=== PATIENT | male | born 1975 | race Caucasian/White ===

== ENCOUNTER 2019-10-05 13:11 | Emergency (ER) | payer OTHER, SELFPAY ==
[2019-10-05 13:13] VITALS: BP 135/91; PULSE 79; RESP 18; TEMP 36.7; O2SAT 100
--- NOTE | 2019-10-05 14:21 | ED.GENADULT ---
HPI - General Adult General Chief complaint: Unspecified Stated complaint: joint/muscle pain, taking zehra Time Seen by Provider: 10/05/19 13:14 Source: patient Mode of arrival: ambulatory Limitations: no limitations History of Present Illness HPI narrative: Patient is a 44-year-old male who presents to emergency department for evaluation of arthralgias for the last 3 days. Patient was concerned that it may be a reaction secondary to his Humira which she has been taking for the last month patient takes Humira for his Crohn's. Is followed by Dr. Burr. Patient denies any illness or other complaints. Patient has not taken anything for his symptoms. Patient notes that the pain is minimal. Related Data Allergies Allergy/AdvReac Type Severity Reaction Status Date / Time No Known Allergies Allergy Unverified 09/02/19 08:55 Review of Systems Review of Systems: All systems reviewed & are unremarkable except as noted in HPI and below PMFSH Past Medical History Medical History Anxiety GERD (gastroesophageal reflux disease) Surgical History Surgical History History of colonoscopy August of [address] Burr. Colon biopsies benign. Biopsy of terminal ileum showed nonspecific moderate chronic ileitis. 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 Smoking packs per day: 0.5 Smoking cigarettes per day: 10.0 Years smoked: 10 Smoking pack-years: 5.00 Smoking status: Former smoker Tobacco type: cigarettes Second hand tobacco smoke exposure: No Smoking end date: 02/21/17 Additional smoking assessment comments: Quit smoking a few years ago. Smoked about 0.5 PPD for 10 years. Alcohol intake: current Drinks per week: 1 Substance use: never Additional living arrangements comments: Lives with his and two children, 15 and 17 years old. 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 Gender identity (if verbalized by the patient): Male Spiritual care concerns: No Agree to blood products: Yes Exam Narrative: Exam Narrative: GENERAL: Well-appearing, well-nourished, and in no acute distress. HEAD: Normocephalic, atraumatic. EYES: PERRLA and EOMI. ENT: Nares clear, no rhinorrhea or epistaxis. Mucous membranes moist. CHEST: Clear to auscultation. No respiratory distress. No wheezes rales or rhonchi HEART: Regular rate and rhythm. No murmur heard. EXTREMITIES: Normal range of motion. No edema. SKIN: Warm, dry, no rash. NEURO: No focal deficits. Alert and oriented x3. Cranial nerves II through XII grossly intact PSYCH: Normal mood and affect. Course Course Emergency Course: Patient in the room in no distress aware of discussion with his cell manager agrees to plan and will follow in clinic was provided with reasons to return Consultations Consultation #1: Discussed case in entirety with patient's cell manager who recommends that the patient take Tylenol and can follow in clinic Date: 10/05/19 Time: 14:24 Vital Signs Vital signs: Vital Signs Temperature 98.0 F 10/05/19 13:13 Pulse Rate 79 10/05/19 13:13 Respiratory Rate 18 10/05/19 13:13 Blood Pressure 135/91 H 10/05/19 13:13 Pulse Oximetry 100 10/05/19 13:13 Temperature 98.0 F 10/05/19 13:13 Pulse Rate 79 10/05/19 13:13 Respiratory Rate 18 10/05/19 13:13 Blood Pressure 135/91 H 10/05/19 13:13 Pulse Oximetry 100 10/05/19 13:13 Medical Decision Making [facility] Narrative Medical decision making narrative: Patient in the room at this time in no distress with no other plaints denies any illness and notes that he has felt fine aside from his mild arthralgias patient agrees to follow with h
== END 2019-10-05 14:39 | disposition home or self-care (01) ==
PROVIDERS: Emergency Provider Emergency Medicine; PCP Family Medicine
DX: M25.50 Pain in unspecified joint (principal); K50.90 Crohn's disease, unspecified, without complications; Z87.891 Personal history of nicotine dependence
CPT/HCPCS: 99281

== ENCOUNTER 2019-10-05 19:16 | Emergency (ER) | payer OTHER, SELFPAY ==
[2019-10-05] VITALS (7 sets, daily range): BP systolic 112–147; BP diastolic 77–97; PULSE 62–99; RESP 18–20; TEMP 36; O2SAT 98–100
--- NOTE | ~2019-10-05 | XR_ITS ---
EXAMINATION: XR chest 2V 10/05/2019 20:01 INDICATION: Chest pain PROCEDURE: 2 view chest COMPARISON: No prior studies for comparison. FINDINGS: The lungs are clear. The cardiomediastinal silhouette is within normal limits. There are no pleural effusions. There is no pneumothorax suspected. IMPRESSION: 1: NO ACUTE CARDIOPULMONARY DISEASE. Reviewed, dictated and finalized at location A.
--- NOTE | 2019-10-05 19:36 | ECG_ITS ---
Measurements Intervals Mallory Rate: 76 P: 65 CO: 193 QRS: 91 QRSD: 116 T: 76 QT: 383 QTc: 432 Interpretive Statements SINUS RHYTHM RIGHT AXIS DEVIATION INCOMPLETE RIGHT BUNDLE BRANCH BLOCK BORDERLINE ECG Electronically Signed On 10-06-2019 7:27:08 CDT by Lloyd Hu D.O.
[2019-10-05 19:59] LABS: Basophils Percent Auto 0.3 % (0.2-1.2); Eosinophils Absolute Auto 0.1 K/mm3 (0-0.3); Eosinophils Percent Auto 2.2 % (0-4.4); Hematocrit 38.4 % (42.0-52.0); Hemoglobin 12.6 g/dL (14.0-18.0); Immature Granulocyte Absolute 0.01 K/mm3 (0.00-0.031); Immature Granulocyte Percent A 0.2 % (0-0.5); Lymphocytes Absolute Auto 2.61 K/mm3 (0.9-3.2); Lymphocytes Percent Auto 40.5 % (18.3-44.2); Mean Corpuscular HGB Conc 32.8 g/dl (32-36); Mean Corpuscular Volume 82.2 fl (80-100); Mean Platelet Volume 8.8 fl (7.4-10.4); Monocytes Absolute Auto 0.4 K/mm3 (0.1-0.6); Monocytes Percent Auto 6.5 % (2.6-8.5); Neutrophils Absolute Auto 3.2 K/mm3 (1.3-6.7); Neutrophils Percent Auto 50.3 % (45.5-73.1); Platelet Count Result 261 k/mm3 (150-375); Red Blood Count 4.67 M/mm3 (4.6-6.20); Red Cell Distribution Width 15.2 % (11.5-14.5); White Blood Count 6.4 K/mm3 (4.5-10.0)
[2019-10-05] MEDS: SODIUM CHLORIDE 0.9% IV 1,000 ML 999 ML IV CONT (20:03)
[2019-10-05 20:08] LABS: Prothrombin Time 13.1 Seconds (11.1-14.7)
[2019-10-05 20:09] LABS: Partial Thromboplastin Time 30.1 SECONDS (22.3-36.8)
[2019-10-05 20:11] LABS: Alanine Aminotransferase 27 U/L (4-50); Albumin Level 4.1 g/dL (3.5-5.1); Alkaline Phosphatase 98 U/L (38-126); Aspartate Amino Transferase 25 U/L (17-59); Bilirubin,Total 0.8 mg/dL (0.2-1.3); Blood Urea Nitrogen 10 mg/dL (9-20); Carbon Dioxide 25 mmol/L (22-30); Chloride 105 mmol/L (98-107); Creatine Kinase 77 U/L (55-170); Estimated CRCL calculation 98 ml/min; Estimated Glomerular Filt Rate > 60; Glucose 121 mg/dL (75-110); Lipase 139 U/L (23-300); Potassium 3.5 mmol/L (3.4-5.0); Sodium 137 mmol/L (137-145)
[2019-10-05 20:22] LABS: Troponin I < 0.012 ng/mL (0.000-0.034)
[2019-10-05 20:28] LABS: D Dimer < 0.22 ug/mL (<0.48)
--- NOTE | 2019-10-05 20:56 | ED.GENADULT ---
HPI - General Adult General Chief complaint: Unspecified Stated complaint: joint pain Time Seen by Provider: 10/05/19 19:25 Source: RN notes reviewed History of Present Illness HPI narrative: Patient presents emergency department from home for left shoulder pain. Patient states that he noted today he began to have achiness in his left posterior shoulder he denies any known trauma or injury states it does hurt worse with movement of the left shoulder. States he does have radiation into the left anterior chest. Patient states he was recently started on Humira and had noted some intermittent joint pain and question if it was possibly Humira he had been seen in the emergency department earlier today for evaluation of this. Patient denies having any fevers or chills shortness of breath vomiting diarrhea or any other symptoms he does note mild nausea states he had had earlier days of mild epigastric pain but denies any current epigastric pain Related Data Allergies Allergy/AdvReac Type Severity Reaction Status Date / Time No Known Allergies Allergy Unverified 10/05/19 20:00 Review of Systems Review of Systems: Narrative: Gen.: Denies fevers or chills Eyes: Denies eye pain or visual change ENT: Denies congestion Respiratory: Denies shortness of breath or cough CV: Denies chest pain or palpitations GI: Reports epigastric pain nausea denies vomiting or diarrhea denies burning, urgency, frequency or hematuria Musculoskeletal: See HPI Neuro: Denies numbness, tingling, weakness or focal weakness Skin: Denies rash Except as documented, all other systems reviewed and negative PMFSH Past Medical History Medical History Anxiety GERD (gastroesophageal reflux disease) Social History Social History Social History: His is durable power title 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 Smoking packs per day: 0.5 Smoking cigarettes per day: 10.0 Years smoked: 10 Smoking pack-years: 5.00 Smoking status: Former smoker Tobacco type: cigarettes Second hand tobacco smoke exposure: No Smoking end date: 02/21/17 Additional smoking assessment comments: Quit smoking a few years ago. Smoked about 0.5 PPD for 10 years. Alcohol intake: current Drinks per week: 1 Substance use: never Additional living arrangements comments: Lives with his and two children, 15 and 17 years old. 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 Gender identity (if verbalized by the patient): Male Spiritual care concerns: No Agree to blood products: Yes Exam Narrative: Exam Narrative: APPEARANCE: No acute distress, nontoxic, resting in bed EYES: EOMI HEENT: Normocephalic, atraumatic, OMM RESPIRATORY: No respiratory distress Clear to auscultation bilaterally with no rhonchi wheezing or rales. CARDIOVASCULAR: Regular rate and rhythm without murmurs rubs or gallops. ABDOMINAL: Soft, nontender, nondistended, no rebound or guarding MUSCULOSKELETAl: Moves all extremities. No clubbing, cyanosis or edema. Tender to palpation in the left posterior and superior shoulder no swelling or ecchymosis no tenderness of the anterior lateral shoulder pain with flexion abduction greater than 90 degrees, no tenderness of the elbow or wrist radial pulse 2+ neurovascular intact NEURO: Awake and alert. Following commands, speech normal, no focal deficits SKIN:: Warm, dry. No rashes lesions or abrasions PSYCHIATRIC: Normal affect/mood, Course Course Emergency Course: Patient states symptoms are resolved following Toradol Discussed with patient results of workup and diagnosis. Discussed need for follow-up with primary care, proper use of medication, and reasons to return to the emergency department. Patient understands and agrees to current treatment plan Vital Signs Vital signs: Vital Signs
[2019-10-05] MEDS: KETOROLAC 30 MG/ML VIAL (*BKC) IV PUSH (21:36)
[2019-10-05 22:50] LABS: Troponin I < 0.012 ng/mL (0.000-0.034)
== END 2019-10-05 23:40 | disposition home or self-care (01) ==
PROVIDERS: Emergency Provider Emergency Medicine; PCP Family Medicine
DX: M25.512 Pain in left shoulder (principal); K21.9 Gastro-esophageal reflux disease without esophagitis; Z87.891 Personal history of nicotine dependence; I45.10 Unspecified right bundle-branch block
CPT/HCPCS: 36415; 71046; 80053; 82550; 83690; 84484; 85025; 85380; 85610; 85730; 93005; 96361; 96374; 99284; J1885; J7030

== ENCOUNTER 2020-06-05 00:23 | Outpatient (CLI) | payer OTHER, SELFPAY ==
[2020-06-05 19:17] LABS: SARS-CoV-2 RNA PCR Negative
== END 2020-06-05 00:24 | disposition home or self-care (01) ==
LOC: ANHCOVIDDT 00:24
PROVIDERS: PCP Family Medicine; Visit Provider Internal Medicine Gastroenterology
DX: Z01.812 Encounter for preprocedural laboratory examination (principal); Z20.822 Contact with and (suspected) exposure to COVID-19
CPT/HCPCS: C9803; U0003; U0005

== ENCOUNTER 2020-06-08 00:44 | Day surgery (SDC) | payer OTHER, SELFPAY ==
[2020-05-22 11:42] VITALS: BMI 20.9
[2020-06-08 06:40] VITALS: BP 119/81; PULSE 93; RESP 18; TEMP 36.3; O2SAT 99
[2020-06-08] MEDS: LACTATED RINGERS 1,000 ML 150 ML IV CONT (06:42)
--- NOTE | 2020-06-08 07:02 | WPDANESEPPF ---
Anes - Initial Pre Proc Eval Procedure: Operation Date: 06/08/20 08:00 Proposed Procedures p Colonoscopy - Anthony Viera MD Date/Time: 06/08/20 07:02 Surgeon: Anthony Viera MD Pre Op Diagnosis: chrohn's disease Patient Data Age: 45 Gender: M Height: 1.93 m Weight: 76.2 kg Last Vital Signs Temp 36.3 C L 06/08/20 06:40 Pulse 93 06/08/20 06:40 Resp 18 06/08/20 06:40 BP 119/81 06/08/20 06:40 Pulse Ox 99 06/08/20 06:40 Allergies Allergy/AdvReac Type Severity Reaction Status Date / Time No Known Allergies Allergy Verified 06/08/20 06:38 Home Medications Medication Instructions Recorded Confirmed Type escitalopram oxalate 20 mg tablet 40 mg PO DAILY #60 tablet 03/19/20 05/22/20 Rx pantoprazole 40 mg tablet,delayed 40 mg PO QAM #90 tablet 04/10/20 05/22/20 Rx release adalimumab [Humira] 40 mg SUB-Q WEEKLY 05/22/20 05/22/20 History Patient hx anesthesia problems: none Family hx anesthesia problems: none PMFSH Past Medical History Medical History (Updated 06/08/20 @ 07:03 by Eulogio Blue MD) Anxiety Crohn's colitis GERD (gastroesophageal reflux disease) Surgical History Surgical History History of colonoscopy August of [address] Burr. Colon biopsies benign. Biopsy of terminal ileum showed nonspecific moderate chronic ileitis. 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 Smoking packs per day: 0.5 Smoking cigarettes per day: 10.0 Years smoked: 10 Smoking pack-years: 5.00 Smoking status: Former smoker Tobacco type: cigarettes Second hand tobacco smoke exposure: No Smoking end date: 02/21/17 Additional smoking assessment comments: Quit smoking a few years ago. Smoked about 0.5 PPD for 10 years. Alcohol intake: never Drinks per week: 1 Substance use: never Substance use type: does not use Living arrangements: with family Additional living arrangements comments: Lives with his and two children, 15 and 17 years old. 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 Gender identity (if verbalized by the patient): Male Spiritual care concerns: No Agree to blood products: Yes Anes - Eval Final PreProcedure Day of Procedure 06/08/20 07:02 Patient weight: normal Heart: regular rate and rhythm Lungs: clear to auscultation and normal air movement Airway: Mallampati scale class II Neurological: alert and oriented Last oral intake: >/= 8 hours ASA classification: III Emergent: no Anesthetic plan: proceed Anesthesia type and monitoring: general GIVS Informed Consent: The patient's anesthetic plan and its attendant risks and benefits were discussed with the patient/family/POA. Questions were solicited and answers provided to the satisfaction of the patient/family/POA.
--- NOTE | 2020-06-08 08:04 | PM.HPGS ---
History of Present Illness History of Present Illness Consent: Risks, benefits, and alternatives have been discussed and questions answered. Patient agrees to proceed with procedure. Chief complaint: chrohn's disease Narrative: Aleks Gorman is a 45 year old male with Crohn's after had ileitis and small pelvic abscess 04/25, on humira for almost 10 months, asymptomatic now. Review of Systems Constitutional: Constitutional: Denies headache(s) and Denies weakness Eyes: Eyes: Denies blurry vision ENT: Reports Normal hearing present, Denies headache(s) and Denies neck pain Cardiovascular: Cardiovascular: Denies chest pain and Denies dyspnea Respiratory: Respiratory: Denies dyspnea Gastrointestinal: Gastrointestinal: Reports no additional gastrointestinal complaints Genitourinary: Genitourinary: Denies dysuria Musculoskeletal: Musculoskeletal: Denies neck pain Integumentary/Breasts: Skin/Breast: Denies dry skin Neurologic: Reports Normal hearing present, Denies headache(s) and Denies weakness Psychiatric: Psychiatric: Denies anxiety Endocrine: Endocrine: Denies change in body appearance Hematologic/Lymphatic: Hematologic/Lymphatic: Denies easy bleeding Allergic/Immunologic: Allergic/Immunologic: Denies urticaria PMFSH Past Medical History Medical History (Updated 06/08/20 @ 07:03 by Eulogio Blue MD) Anxiety Crohn's colitis GERD (gastroesophageal reflux disease) Surgical History Surgical History History of colonoscopy August of [address] Burr. Colon biopsies benign. Biopsy of terminal ileum showed nonspecific moderate chronic ileitis. 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 Smoking packs per day: 0.5 Smoking cigarettes per day: 10.0 Years smoked: 10 Smoking pack-years: 5.00 Smoking status: Former smoker Tobacco type: cigarettes Second hand tobacco smoke exposure: No Smoking end date: 02/21/17 Additional smoking assessment comments: Quit smoking a few years ago. Smoked about 0.5 PPD for 10 years. Alcohol intake: never Drinks per week: 1 Substance use: never Substance use type: does not use Living arrangements: with family Additional living arrangements comments: Lives with his and two children, 15 and 17 years old. 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 Gender identity (if verbalized by the patient): Male Spiritual care concerns: No Agree to blood products: Yes Meds Home Medications and Allergies Home Medications Medication Instructions Recorded Confirmed Type escitalopram oxalate 20 mg tablet 40 mg PO DAILY #60 tablet 03/19/20 05/22/20 Rx pantoprazole 40 mg tablet,delayed 40 mg PO QAM #90 tablet 04/10/20 05/22/20 Rx release adalimumab [Humira] 40 mg SUB-Q WEEKLY 05/22/20 05/22/20 History Allergies Allergy/AdvReac Type Severity Reaction Status Date / Time No Known Allergies Allergy Verified 06/08/20 06:38 Vital Signs Vital Signs - 24 hr 06/08/20 06:40 Temperature 97.4 F L Pulse Rate 93 Respiratory Rate 18 Blood Pressure 119/81 Pulse Oximetry 99 Exam Const: General: comfortable and no acute distress HENMT: General nose exam: Normal nares present Eyes: General: appearance normal, both eyes and all related structures Neck: Neck: no JVD Resp: Auscultation: clear to auscultation bilaterally Cardio: Rate: regular rate Rhythm: regular rhythm GI: Inspection: non-distended
[2020-06-08 08:30] VITALS: BP 91/60; PULSE 72; RESP 20; O2SAT 99
[2020-06-08 08:40] VITALS: BP 94/60; PULSE 63; RESP 18; O2SAT 100
[2020-06-08 08:50] VITALS: BP 101/68; PULSE 64; RESP 20; O2SAT 99
== END 2020-06-08 09:03 | disposition home or self-care (01) ==
PROVIDERS: PCP Family Medicine; Visit Provider Internal Medicine Gastroenterology
PROC: 0DJD8ZZ Inspection of Lower Intestinal Tract, Via Natural or Artificial Opening Endoscopic (ICD-10-PCS; CPT 45378; principal; 2020-06-08 08:00)
DX: K50.90 Crohn's disease, unspecified, without complications (principal); Z87.891 Personal history of nicotine dependence; K21.9 Gastro-esophageal reflux disease without esophagitis; F41.9 Anxiety disorder, unspecified
CPT/HCPCS: 45380; 88305; C9803; J2704; J7120; U0003; U0005

== ENCOUNTER 2021-02-08 01:50 | Day surgery (SDC) | payer OTHER, SELFPAY ==
[2021-01-25 16:02] VITALS: BMI 20.9
--- NOTE | 2021-02-05 13:59 | PM.HPGS ---
History of Present Illness History of Present Illness Consent: Risks, benefits, and alternatives have been discussed and questions answered. Patient agrees to proceed with procedure. Chief complaint: GERD K21.9 Narrative: Aleks Gorman is a 45 year old male with chronic acid reflux. He is on prior and topped is all but has breakthrough symptoms both during the day and night. He has a family history of Finn's esophagus Review of Systems Review of Systems: All systems reviewed & are unremarkable except as noted in HPI and below PMFSH Past Medical History Medical History Anxiety Crohn's colitis GERD (gastroesophageal reflux disease) Surgical History Surgical History History of colonoscopy August of [address] Burr. Colon biopsies benign. Biopsy of terminal ileum showed nonspecific moderate chronic ileitis. Hx of tonsillectomy Family History Family History Father Malignant neoplasm of prostate Gallbladder disease Prostate carcinoma Mother Overdose of opiate or related narcotic Other Family history of arthritis Social History Social History Social History: His is durable power litigation 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 Smoking packs per day: 0.5 Smoking cigarettes per day: 10.0 Years smoked: 10 Smoking pack-years: 5.00 Smoking status: Former smoker Tobacco type: cigarettes Second hand tobacco smoke exposure: No Smoking end date: 02/21/17 Additional smoking assessment comments: Quit smoking a few years ago. Smoked about 0.5 PPD for 10 years. Alcohol intake: former Drinks per week: 1 Alcohol use details: Rare. Substance use: never Substance use type: does not use Living arrangements: with family Additional living arrangements comments: Lives with his and two children, 15 and 17 years old. 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 Gender identity (if verbalized by the patient): Male Spiritual care concerns: No Agree to blood products: Yes Meds Home Medications and Allergies Home Medications Medication Instructions Recorded Confirmed Type adalimumab [Humira] 40 mg SUB-Q USEASDIRECTD 05/22/20 01/25/21 History pantoprazole 40 mg tablet,delayed 40 mg PO QAM #90 tablet 11/17/20 01/25/21 Rx release ferrous sulfate 325 mg PO DAILY 01/25/21 01/25/21 History escitalopram oxalate 20 mg tablet 20 mg PO DAILY #90 tablet 01/31/21 02/08/21 Rx Allergies Allergy/AdvReac Type Severity Reaction Status Date / Time No Known Allergies Allergy Verified 02/08/21 09:46 Exam Const: General: alert Orientation/consciousness: patient oriented x3 Resp: Auscultation: clear to auscultation bilaterally Cardio: Rhythm: regular rhythm GI: GI Palp: Yes Soft to palpation and No Tenderness to palpation present (GI) Neuro: General: patient oriented x3 Assessment and Plan Assessment and plan (1) GERD (gastroesophageal reflux disease): Code(s): K21.9 - Gastro-esophageal reflux disease without esophagitis Status: Chronic Assessment and Plan: EGD with possible biopsy or dilatation or cautery.
[2021-02-08 09:50] VITALS: BP 118/80; PULSE 73; RESP 18; TEMP 36.6; O2SAT 98; BMI 20.4
[2021-02-08] MEDS: LACTATED RINGERS 1,000 ML 150 ML IV CONT (10:00)
--- NOTE | 2021-02-08 10:38 | WPDANESEPPF ---
Anes - Initial Pre Proc Eval Procedure: Operation Date: 02/08/21 11:00 Proposed Procedures p Esophagogastroduodenoscopy - John Burr MD Date/Time: 02/08/21 10:38 Surgeon: John Burr MD Pre Op Diagnosis: GERD K21.9 Patient Data Age: 45 Gender: M Height: 1.93 m Weight: 76.2 kg Last Vital Signs Temp 36.6 C 02/08/21 09:50 Pulse 73 02/08/21 09:50 Resp 18 02/08/21 09:50 BP 118/80 02/08/21 09:50 Pulse Ox 98 02/08/21 09:50 Allergies Allergy/AdvReac Type Severity Reaction Status Date / Time No Known Allergies Allergy Verified 02/08/21 09:46 Home Medications Medication Instructions Recorded Confirmed Type adalimumab [Humira] 40 mg SUB-Q USEASDIRECTD 05/22/20 01/25/21 History pantoprazole 40 mg tablet,delayed 40 mg PO QAM #90 tablet 11/17/20 01/25/21 Rx release ferrous sulfate 325 mg PO DAILY 01/25/21 01/25/21 History escitalopram oxalate 20 mg tablet 20 mg PO DAILY #90 tablet 01/31/21 02/08/21 Rx Patient hx anesthesia problems: none Family hx anesthesia problems: none Results Review: All pre-operative results and documents have been reviewed as part of the pre-operative evaluation. [facility] Past Medical History Medical History Anxiety Crohn's colitis GERD (gastroesophageal reflux disease) Surgical History Surgical History History of colonoscopy August of [address] Burr. Colon biopsies benign. Biopsy of terminal ileum showed nonspecific moderate chronic ileitis. 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 Smoking packs per day: 0.5 Smoking cigarettes per day: 10.0 Years smoked: 10 Smoking pack-years: 5.00 Smoking status: Former smoker Tobacco type: cigarettes Second hand tobacco smoke exposure: No Smoking end date: 02/21/17 Additional smoking assessment comments: Quit smoking a few years ago. Smoked about 0.5 PPD for 10 years. Alcohol intake: former Drinks per week: 1 Alcohol use details: Rare. Substance use: never Substance use type: does not use Living arrangements: with family Additional living arrangements comments: Lives with his and two children, 15 and 17 years old. 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 Gender identity (if verbalized by the patient): Male Spiritual care concerns: No Agree to blood products: Yes Anes - Eval Final PreProcedure Day of Procedure 02/08/21 10:38 Patient weight: normal Heart: regular rate and rhythm Lungs: clear to auscultation and normal air movement Airway: Mallampati scale class II Neurological: alert and oriented Last oral intake: >/= 8 hours ASA classification: III Emergent: no Anesthetic plan: proceed Anesthesia type and monitoring: general GIVS and standard monitoring Results Review: All pre-operative results and documents have been reviewed as part of the pre-operative evaluation. Informed Consent: The patient's anesthetic plan and its attendant risks and benefits were discussed with the patient/family/POA. Questions were solicited and answers provided to the satisfaction of the patient/family/POA.
[2021-02-08 11:15] VITALS: BP 103/68; PULSE 59; RESP 18; O2SAT 98
[2021-02-08 11:25] VITALS: BP 108/74; PULSE 55; RESP 18; O2SAT 100
[2021-02-08 11:35] VITALS: BP 106/72; PULSE 58; RESP 22; O2SAT 100
== END 2021-02-08 11:54 | disposition home or self-care (01) ==
PROVIDERS: PCP Family Medicine; Visit Provider Internal Medicine Gastroenterology
PROC: 0DJ08ZZ Inspection of Upper Intestinal Tract, Via Natural or Artificial Opening Endoscopic (ICD-10-PCS; CPT 43235; principal; 2021-02-08 11:00)
DX: K21.9 Gastro-esophageal reflux disease without esophagitis (principal); F41.9 Anxiety disorder, unspecified; K50.90 Crohn's disease, unspecified, without complications; Z87.891 Personal history of nicotine dependence
CPT/HCPCS: 43239; 88305; 88313; J7120

== ENCOUNTER 2021-06-16 11:10 | Emergency (ER) | payer OTHER, SELFPAY ==
--- NOTE | ~2021-06-16 | CT_ITS ---
EXAMINATION: CT abdomen pelvis w con EXAM DATE: 06/16/2021 12:52 INDICATION: Lower abdominal pain, history of Crohn's . TECHNIQUE: Spiral CT of the abdomen and pelvis was performed following intravenous injection of 100 m L Omnipaque 350. Axial, coronal and sagittal images of the abdomen and pelvis were reviewed. The do se-length product (DLP) for this examination was 317.94 mGy-cm. The exposure was tailored according to patient size (auto mA exposure control), and iterative reconstruction (ASIR) was used as additiona l dose reduction technique. Comparison is made to prior examination from 04/25/2019. FINDINGS: The liver, spleen, adrenal glands and pancreas are unremarkable. Gallbladder is unremarkab le. No biliary obstruction. Portal and splenic veins are patent. Kidneys enhance symmetrically. T here is no hydronephrosis. The prostate is unremarkable. The bladder is unremarkable. There is no retroperitoneal or pelvic lymphadenopathy. There is moderate amount of terminal ileal, distal ileal wall edema with enhancing mucosa. Terminal i leitis consistent with provided history of Crohn's disease. Infectious etiology can have similar appe arance. No abscess or perforation. There is less inflammation than on previous examination in 2019. S mall amount of reactive free pelvic fluid. There are no findings to suggest appendicitis. There is small sliding gastroesophageal hiatal hernia . There is expected amount of colonic stool. No free intraperitoneal gas. The heart is normal in size. There are no pericardial or pleural effusions. The lung bases are unremarkable. There are n o osteoblastic or osteolytic lesions identified. IMPRESSION: Terminal ileitis. Reviewed, dictated and finalized at location B. ITY TENDER CARDING IMPRESSION: Terminal ileitis.
[2021-06-16 11:18] VITALS: BP 132/82; PULSE 91; RESP 18; TEMP 36.1; O2SAT 100
[2021-06-16 12:02] LABS: Basophils Percent Auto 0.2 % (0.2-1.2); Eosinophils Percent Auto 0.2 % (0-4.4); Hematocrit 41.8 % (42.0-52.0); Hemoglobin 13.9 g/dL (14.0-18.0); Immature Granulocyte Absolute 0.04 K/mm3 (0.00-0.031); Immature Granulocyte Percent A 0.3 % (0-0.5); Lymphocytes Absolute Auto 1.26 K/mm3 (0.9-3.2); Lymphocytes Percent Auto 8.5 % (18.3-44.2); Mean Corpuscular HGB Conc 33.3 g/dl (32-36); Mean Corpuscular Hemoglobin 29.1 pg (26-34); Mean Corpuscular Volume 87.4 fl (80-100); Mean Platelet Volume 9.5 fl (7.4-10.4); Monocytes Absolute Auto 1.1 K/mm3 (0.1-0.6); Monocytes Percent Auto 7.6 % (2.6-8.5); Neutrophils Absolute Auto 12.3 K/mm3 (1.3-6.7); Neutrophils Percent Auto 83.2 % (45.5-73.1); Platelet Count Result 304 k/mm3 (150-375); Red Blood Count 4.78 M/mm3 (4.6-6.20); Red Cell Distribution Width 14.1 % (11.5-14.5); White Blood Count 14.8 K/mm3 (4.5-10.0)
[2021-06-16 12:08] LABS: Add Urine Microscopic? YES; Appearance Urine Clear (Clear); Bacteria Urine 2+ /hpf; Bilirubin Urine Negative (Negative); Blood Urine 1+ (Negative); Color Urine Amber (Yellow); Glucose Urine UA Negative (Negative); Ketones Urine 2+ mg/dL (Negative); Leukocyte Esterase Ur Trace LEU/UL (Negative); Mucus Urine Heavy /lpf; Nitrate Urine Positive (Negative); Protein Urine 1+ mg/dL (Negative); Squamous Epithelial Cell Urine Rare /hpf (Few); Urobilinogen Urine Negative mg/dL (<2.0)
[2021-06-16 12:12] LABS: Alanine Aminotransferase 17 U/L (4-50); Albumin Level 4.4 g/dL (3.5-5.1); Alkaline Phosphatase 116 U/L (38-126); Anion Gap 9 mmol/L (8-16); Aspartate Amino Transferase 21 U/L (17-59); Bilirubin,Total 0.7 mg/dL (0.2-1.3); Blood Urea Nitrogen 11 mg/dL (9-20); Calcium 9.3 mg/dL (8.4-10.2); Carbon Dioxide 24 mmol/L (22-30); Chloride 104 mmol/L (98-107); Estimated CRCL calculation 99 ml/min; Estimated Glomerular Filt Rate > 60; Glucose 119 mg/dL (65-110); Lipase 40 U/L (23-300); Potassium 4.1 mmol/L (3.4-5.0); Sodium 137 mmol/L (137-145)
--- NOTE | 2021-06-16 12:33 | ED.ABDPAIN ---
HPI - Abdominal Pain General Chief Complaint: Abdominal Pain Stated Complaint: abd pain Time Seen by Provider: 06/16/21 12:17 Source: patient Mode of arrival: ambulatory Limitations: no limitations History of Present Illness HPI narrative: Patient is a 46-year-old male complaining of lower abdominal pain, 6 out of 10, dull, nonradiating started approximately 2 to 3 days ago. Patient was sent here from Dr. Alejandro's office for further evaluation and treatment. Patient has a history of Crohn's disease. Patient denies any chest pain, shortness of breath, nausea, vomiting, diarrhea, GI bleed, fever or chills. Related Data Home Medications Medication Instructions Recorded Confirmed Humira 40 mg SUB-Q USEASDIRECTD 05/22/20 04/26/21 Allergies Allergy/AdvReac Type Severity Reaction Status Date / Time No Known Allergies Allergy Verified 06/16/21 11:18 Review of Systems Review of Systems: All systems reviewed & are unremarkable except as noted in HPI and below Constitutional: Constitutional: Denies body ache(s), Denies chills, Denies excessive sweating, Denies fatigue, Denies fever(s), Denies headache(s), Denies lethargy, Denies malaise, Denies weakness and Denies weight loss Eyes: Eyes: Denies blurry vision, Denies change in vision and Denies loss of vision ENT: Denies dizziness, Denies ear discharge, Denies headache(s), Denies lip swelling, Denies epistaxis, Denies nasal congestion, Denies neck pain, Denies throat swelling and Denies tongue swelling Cardiovascular: Cardiovascular: Denies chest pain, Denies chest pain at rest, Denies chest pain with activity, Denies diaphoresis, Denies rapid heart rate, Denies edema, Denies irregular heart rhythm, Denies lightheadedness, Denies palpitations, Denies dyspnea and Denies dyspnea on exertion Respiratory: Respiratory: Denies chest congestion, Denies cough, Denies hemoptysis, Denies dyspnea and Denies dyspnea on exertion Gastrointestinal: Gastrointestinal: Denies melena, Denies hematochezia, Denies diarrhea, Denies nausea, Denies vomiting and Denies hematemesis Musculoskeletal: Musculoskeletal: Denies abnormal gait, Denies deformity, Denies joint swelling, Denies limited range of motion, Denies neck pain and Denies numbness Neurologic: Denies Abnormal speech present, Denies abnormal gait, Denies confusion, Denies dizziness, Denies headache(s), Denies focal weakness, Denies loss of vision, Denies numbness, Denies Other visual disturbances, Denies Sensory deficit (Neuro) and Denies weakness Psychiatric: Psychiatric: Denies confusion, Denies depression, Denies auditory hallucinations, Denies homicidal ideation and Denies suicidal ideation Endocrine: Endocrine: Denies cold intolerance, Denies excessive sweating, Denies fatigue, Denies heat intolerance and Denies palpitations Hematologic/Lymphatic: Hematologic/Lymphatic: Denies easy bleeding and Denies easy bruising Allergic/Immunologic: Allergic/Immunologic: Denies lip swelling, Denies throat swelling and Denies tongue swelling PMFSH Past Medical History Medical History Anxiety Crohn's colitis GERD (gastroesophageal reflux disease) Surgical History Surgical History History of colonoscopy August of [address] Burr. Colon biopsies benign. Biopsy of terminal ileum showed nonspecific moderate chronic ileitis. Hx of tonsillectomy Family History Family History Father Malignant neoplasm of prostate Gallbladder disease Prostate carcinoma Mother Overdose of opiate or related narcotic Other Family history of arthritis Social History Social History Social History: His is durable power director investment banking for healthcare and he is a full code. Smoking packs per day: 0.5 Smoking cigarettes per day: 10.0 Years smoke
[2021-06-16] MEDS: SODIUM CHLORIDE 0.9% IV 1,000 ML 999 ML IV CONT (12:54)
[2021-06-16] MEDS: methylPREDNISolone SOD SUCC 125 MG VIAL 80 MG IV PUSH (15:54)
[2021-06-16 16:01] VITALS: BP 136/78; PULSE 86; RESP 18; O2SAT 99
== END 2021-06-16 16:02 | disposition home or self-care (01) ==
PROVIDERS: Emergency Medicine; Emergency Provider Emergency Medicine; PCP Family Medicine
DX: K50.00 Crohn's disease of small intestine without complications (principal); K21.9 Gastro-esophageal reflux disease without esophagitis; Z87.891 Personal history of nicotine dependence
CPT/HCPCS: 36415; 74177; 80053; 81001; 83690; 85025; 87077; 87086; 87186; 96361; 96374; 99285; J2930; J7030; Q9967

== ENCOUNTER 2022-05-06 16:32 | Emergency (ER) | payer OTHER, SELFPAY ==
--- NOTE | ~2022-05-06 | XR_ITS ---
EXAMINATION: XR chest 2V DATE: 05/06/2022 19:11 INDICATION: Chest pain. TECHNIQUE: Frontal and lateral views of the chest were obtained. COMPARISON: Chest 2 views 10/05/2019, CT abdomen and pelvis 05/06/2022 FINDINGS: The chest demonstrates clear lungs without pneumonia, pleural effusion, or pneumothorax. Th e heart size is normal. IMPRESSION: 1. No acute cardiopulmonary disease. Reviewed, dictated and finalized at location A. TAL STRATEGY DIRECTOR
--- NOTE | ~2022-05-06 | CT_ITS ---
EXAMINATION: CT abdomen pelvis w con DATE: 05/06/2022 19:17 INDICATION: Generalized abdominal pain. TECHNIQUE: Computed tomography (CT) of the abdomen and pelvis was performed with 100 mL Omnipaque 350 intravenous contrast. Automated exposure control and iterative reconstruction technique were employe d. The dose-length product was 338.49 mGy-cm. COMPARISON: CT abdomen and pelvis 06/16/2021 FINDINGS: The visualized portions of the lung bases are clear without pneumonia or pleural effusion. The heart size is normal. No pericardial effusion. There are cysts in the liver measuring up to 5 mm . The gallbladder, spleen, pancreas, adrenal glands, and kidneys are normal. There is a right inguina l hernia containing fat. There are no dilated loops of bowel. There is a wall thickening of the dista l 25 cm of ileum. There is mild fat stranding between the ileum and sigmoid colon, consistent with in flammation/scarring. The appendix is normal. There are no pathologically enlarged lymph nodes. There is no free intraperitoneal fluid. There is a chronic sclerotic lesion in left ilium, likely benign. T here is moderate lower lumbar spondylosis. IMPRESSION: 1. Wall thickening of the distal 25 cm of ileum, consistent with Crohn disease, improved from 06/16/21. Reviewed, dictated and finalized at location A. IC PHYSICIAN DIRECTOR
[2022-05-06 16:36] VITALS: BP 139/84; PULSE 87; RESP 18; TEMP 36.7; O2SAT 97
[2022-05-06 16:58] LABS: Basophils Percent Auto 0.4 % (0.2-1.2); Eosinophils Absolute Auto 0.1 K/mm3 (0-0.3); Hemoglobin 13.1 g/dL (14.0-18.0); Immature Granulocyte Absolute 0.01 K/mm3 (0.00-0.031); Immature Granulocyte Percent A 0.1 % (0-0.5); Lymphocytes Absolute Auto 2.64 K/mm3 (0.9-3.2); Lymphocytes Percent Auto 36.3 % (18.3-44.2); Mean Corpuscular HGB Conc 33.6 g/dl (32-36); Mean Corpuscular Volume 83.3 fl (80-100); Mean Platelet Volume 9.8 fl (7.4-10.4); Monocytes Absolute Auto 0.6 K/mm3 (0.1-0.6); Neutrophils Absolute Auto 3.9 K/mm3 (1.3-6.7); Neutrophils Percent Auto 54.2 % (45.5-73.1); Platelet Count Result 322 k/mm3 (150-375); Red Blood Count 4.68 M/mm3 (4.6-6.20); Red Cell Distribution Width 14.5 % (11.5-14.5); White Blood Count 7.3 K/mm3 (4.5-10.0)
[2022-05-06 17:12] LABS: Alanine Aminotransferase 20 U/L (6-50); Albumin Level 4.7 g/dL (3.5-5.1); Alkaline Phosphatase 95 U/L (38-126); Anion Gap 7 mmol/L (8-16); Aspartate Amino Transferase 26 U/L (17-59); Blood Urea Nitrogen 7 mg/dL (9-20); Carbon Dioxide 26 mmol/L (22-30); Chloride 103 mmol/L (98-107); Estimated CRCL calculation 100 ml/min; Estimated Glomerular Filt Rate > 60; Glucose 88 mg/dL (65-110); Lipase 145 U/L (23-300); Potassium 3.4 mmol/L (3.4-5.0); Sodium 136 mmol/L (137-145)
--- NOTE | 2022-05-06 18:49 | ECG_ITS ---
Measurements Intervals [place] Rate: 69 P: 72 [place]: 215 QRS: 69 QRSD: 118 T: 59 QT: 386 QTc: 415 Interpretive Statements SINUS RHYTHM WITH FIRST DEGREE AV BLOCK INCOMPLETE RIGHT BUNDLE BRANCH BLOCK COMPARED TO ECG 10/05/2019 19:53:33 NO SIGNIFICANT DIFFERENCE OTHER THAN SLIGHTLY LONGER [place] INTERVAL Electronically Signed On 05-07-2022 9:44:47 CHYRON OPERATOR by Grzegorz Avelar M.D.
--- NOTE | 2022-05-06 18:51 | ED.ABDPAIN ---
HPI - Abdominal Pain General Chief Complaint: Abdominal Pain Stated Complaint: GI issues- hx of crohns Time Seen by Provider: 05/06/22 18:32 Source: patient Mode of arrival: ambulatory Limitations: no limitations History of Present Illness HPI narrative: This is a 47 year old male that presents to the ER for abdominal pain. Ongoing over the last 6 days. Reports the pain is achy in nature. Radiates into his chest. Associated with diarrhea. Reports history of Crohn's, he was concerned he was having a flare. 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 He currently takes Humira for Crohn's. Reports he did see some blood in his stool last . Denies fever, vomiting, or dysuria. Related Data Allergies Allergy/AdvReac Type Severity Reaction Status Date / Time No Known Allergies Allergy Verified 12/20/21 10:06 Review of Systems Review of Systems: CONSTITUTIONAL: Denies fever, CARDIOVASCULAR: Reports chest pain RESPIRATORY: Denies dyspnea. GASTROINTESTINAL: Reports abdominal pain, and diarrhea. Denies nausea or vomiting. GENITOURINARY: Denies dysuria All systems reviewed & are unremarkable except as noted in HPI and below PMFSH Past Medical History Medical History Anxiety Crohn's colitis GERD (gastroesophageal reflux disease) Surgical History Surgical History History of colonoscopy August of [address] Burr. Colon biopsies benign. Biopsy of terminal ileum showed nonspecific moderate chronic ileitis. Hx of tonsillectomy Family History Family History Father Malignant neoplasm of prostate Gallbladder disease Prostate carcinoma Mother Overdose of opiate or related narcotic Hypertension Sibling No problems noted. Other Family history of arthritis Social History Social History Social History: His is durable power associate 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 Smoking packs per day: 0.5 Smoking cigarettes per day: 10.0 Years smoked: 10 Smoking pack-years: 5.00 Smoking status: Former smoker Tobacco type: cigarettes Second hand tobacco smoke exposure: No Smoking end date: 02/21/17 Additional smoking assessment comments: Quit smoking a few years ago. Smoked about 0.5 PPD for 10 years. Alcohol intake: former Drinks per week: 1 Alcohol use details: Rare. Substance use: never Substance use type: does not use Additional living arrangements comments: Lives with his and two children, 15 and 17 years old. 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 Gender identity (if verbalized by the patient): Male Spiritual care concerns: No Agree to blood products: Yes Exam Narrative: GENERAL: Well-appearing, well-nourished, and in no acute distress. HEAD: Normocephalic, atraumatic. EYES: EOMI. CHEST: Clear to auscultation. No respiratory distress. No wheezes rales or rhonchi HEART: Regular rate and rhythm. No murmur heard. Normal peripheral pulses. ABDOMEN: Soft, nondistended, normal active bowel sounds. Mild tenderness to palpation throughout the mid abdomen, without guarding EXTREMITIES: Normal range of motion. No edema. SKIN: Warm, dry, no rash. NEURO: No focal deficits. Alert and oriented x3. PSYCH: Normal mood and affect RECTAL: Hemoccult negative Course Course Emergency Course: Patient updated on work-up. Resting comfortably. Spoke with patient about treatment plan. 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 I will treat him as he was on his last flare for which he was seen in the emergency department a year. Was given a dose of IV methylprednisolone and discharged on methylprednisolone Dos
[2022-05-06 18:57] VITALS: PULSE 74; RESP 15; O2SAT 100
[2022-05-06 19:30] LABS: Troponin I < 0.012 ng/mL (0.000-0.034)
[2022-05-06 20:48] LABS: Add Urine Microscopic? YES; Appearance Urine Clear (Clear); Bilirubin Urine Negative (Negative); Blood Urine Negative (Negative); Color Urine Yellow (Yellow); Glucose Urine UA Negative (Negative); Ketones Urine 1+ mg/dL (Negative); Leukocyte Esterase Ur Negative LEU/UL (Negative); Nitrate Urine Negative (Negative); Protein Urine Negative (Negative); Specific Grav Ur <= 1.005 (1.001-1.035); Urobilinogen Urine 0.2 mg/dL (<2.0)
[2022-05-06 20:52] LABS: Mucus Urine Rare /lpf; RBC Urine 0-2 /hpf (0-2); WBC Urine 0-3 /hpf
[2022-05-06] MEDS: methylPREDNISolone SOD SUCC 125 MG VIAL 60 MG IV PUSH (21:29)
== END 2022-05-06 21:41 | disposition home or self-care (01) ==
PROVIDERS: Emergency Medicine; Emergency Provider Physician Assistant; PCP Family Medicine
DX: K50.00 Crohn's disease of small intestine without complications (principal); K21.9 Gastro-esophageal reflux disease without esophagitis; Z87.891 Personal history of nicotine dependence
CPT/HCPCS: 36415; 71046; 74177; 80053; 81001; 83690; 84484; 85025; 93005; 96365; 96375; 99284; J0131; J2930; Q9967

== ENCOUNTER 2022-09-02 10:54 | Outpatient (CLI) | payer OTHER, SELFPAY ==
[2022-09-05 17:03] LABS: NIL 0.01 IU/mL; Quantiferon TB Plus, 1T NEGATIVE (NEGATIVE); TB1-NIL 0.01 IU/mL; TB2-NIL 0.01 IU/mL
== END 2022-09-02 10:55 | disposition home or self-care (01) ==
LOC: ANHLAB 10:55
PROVIDERS: PCP Family Medicine; Visit Provider Internal Medicine Gastroenterology
DX: K50.10 Crohn's disease of large intestine without complications (principal)
CPT/HCPCS: 36415; 86480

== ENCOUNTER 2023-01-21 09:16 | Emergency (ER) | payer OTHER, SELFPAY ==
[2023-01-21 09:18] VITALS: BP 133/91; PULSE 100; RESP 18; TEMP 36.6; O2SAT 99
--- NOTE | 2023-01-21 09:22 | ED.ABDPAIN ---
HPI - Abdominal Pain General Chief Complaint: Abdominal Pain Stated Complaint: abdominal pain Time Seen by Provider: 01/21/23 09:22 Source: patient Mode of arrival: ambulatory Limitations: no limitations History of Present Illness HPI narrative: Patient is a very pleasant 47-year-old male with a past medical history of Crohn's disease who presents from Department today ambulatory with a steady gait for evaluation of a having a Crohn's flare. discomfort with nausea and loose stool started last night. he has not been able to get his Humara due to insurance rejecting it since about July time. He states usually he gets steroids which helps. Patient states that he has still had some discomfort in the epigastric region of his chest. He denies any shortness for breath, left-sided chest pain, dizziness, fever, chills, urinary symptoms, constipation, significant bloody stool, vomiting, or any other symptoms. Related Data Allergies Allergy/AdvReac Type Severity Reaction Status Date / Time No Known Allergies Allergy Verified 01/21/23 09:22 Review of Systems Review of Systems: CONSTITUTIONAL: Denies fever, chills, or sweats. EYES: Denies visual changes, redness, or discharge. ENT: Denies rhinorrhea, congestion, sore throat, or otalgia. CARDIOVASCULAR: Denies chest pain, palpitations, or edema. RESPIRATORY: Denies cough or dyspnea. GASTROINTESTINAL: +abdominal discomfort generalized to lower, epigastric pain/upper which is new, nausea, loose some bloody stool. denies constipation GENITOURINARY: Denies dysuria or hematuria. SKIN: Denies rash or itching. MUSCULOSKELETAL: Denies back pain, joint pain, or myalgia. NEUROLOGIC: Denies headache, numbness, or weakness. PSYCHIATRIC: Denies anxiety or depression. All systems reviewed & are unremarkable except as noted in HPI and below PMFSH Past Medical History Medical History Anxiety Crohn's colitis GERD (gastroesophageal reflux disease) Surgical History Surgical History History of colonoscopy August of [address] Burr. Colon biopsies benign. Biopsy of terminal ileum showed nonspecific moderate chronic ileitis. Hx of tonsillectomy Family History Family History Father Malignant neoplasm of prostate Gallbladder disease Prostate carcinoma Mother Overdose of opiate or related narcotic Hypertension Sibling No problems noted. Other Family history of arthritis Social History Social History Social History: His is durable power assistant attorney general for healthcare and he is a full code. Smoking packs per day: 0.5 Smoking cigarettes per day: 10.0 Years smoked: 10 Smoking pack-years: 5.00 Smoking status: Former smoker Tobacco type: cigarettes Second hand tobacco smoke exposure: No Smoking end date: 02/21/17 Additional smoking assessment comments: Quit smoking a few years ago. Smoked about 0.5 PPD for 10 years. Alcohol intake: former Drinks per week: 1 Alcohol use details: Rare. Substance use: never Substance use type: does not use Living arrangements: with family Additional living arrangements comments: Lives with his and two children, 15 and 17 years old. 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 Gender identity (if verbalized by the patient): Male Spiritual care concerns: No Agree to blood products: Yes Exam Narrative: GENERAL: Well-appearing, well-nourished, and in no acute distress. HEAD: Normocephalic, atraumatic. EYES: PERRLA and EOMI. ENT: Nares clear, no rhinorrhea or epistaxis. Mucous membranes moist. NECK: Supple. CHEST: Clear to auscultation. No respiratory distress. HEART: Regular rate and rhythm. No murm
[2023-01-21 10:09] LABS: Potassium 4.2 mmol/L (3.4-5.0)
[2023-01-21 10:10] LABS: Alanine Aminotransferase 23 U/L (6-50); Albumin Level 4.4 g/dL (3.5-5.1); Alkaline Phosphatase 105 U/L (38-126); Anion Gap 4 mmol/L (8-16); Aspartate Amino Transferase 29 U/L (17-59); Bilirubin,Total 0.7 mg/dL (0.2-1.3); Blood Urea Nitrogen 13 mg/dL (9-20); Carbon Dioxide 29 mmol/L (22-30); Chloride 105 mmol/L (98-107); Estimated CRCL calculation 99 ml/min; Estimated Glomerular Filt Rate > 60; Glucose 95 mg/dL (65-110); Lipase 113 U/L (23-300); Sodium 138 mmol/L (137-145)
[2023-01-21] MEDS: HYDROCORTISONE SODIUM SUCCINATE 100 MG/2 ML VIAL IV PUSH (10:11)
[2023-01-21 10:13] LABS: Add Urine Microscopic? NO; Appearance Urine Clear (Clear); Bilirubin Urine Negative (Negative); Blood Urine Negative (Negative); Color Urine Dark Yellow (Yellow); Glucose Urine UA Negative (Negative); Ketones Urine Trace mg/dL (Negative); Leukocyte Esterase Ur Negative LEU/UL (Negative); Nitrate Urine Negative (Negative); Protein Urine Negative (Negative); Specific Grav Ur 1.027 (1.001-1.035); pH Urine 5.5 (5.0-9.0)
[2023-01-21 10:14] LABS: Basophils Percent Auto 0.4 % (0.2-1.2); Eosinophils Absolute Auto 0.2 K/mm3 (0-0.3); Eosinophils Percent Auto 2.7 % (0-4.4); Hematocrit 42.9 % (42.0-52.0); Hemoglobin 13.4 g/dL (14.0-18.0); Immature Granulocyte Absolute 0.02 K/mm3 (0.00-0.031); Immature Granulocyte Percent A 0.3 % (0-0.5); Lymphocytes Absolute Auto 2.03 K/mm3 (0.9-3.2); Lymphocytes Percent Auto 29.2 % (18.3-44.2); Mean Corpuscular HGB Conc 31.2 g/dl (32-36); Mean Corpuscular Hemoglobin 27.5 pg (26-34); Mean Corpuscular Volume 87.9 fl (80-100); Mean Platelet Volume 9.9 fl (7.4-10.4); Monocytes Absolute Auto 0.5 K/mm3 (0.1-0.6); Monocytes Percent Auto 7.8 % (2.6-8.5); Neutrophils Absolute Auto 4.2 K/mm3 (1.3-6.7); Neutrophils Percent Auto 59.6 % (45.5-73.1); Platelet Count Result 335 k/mm3 (150-375); Red Blood Count 4.88 M/mm3 (4.6-6.20); Red Cell Distribution Width 16.4 % (11.5-14.5)
[2023-01-21] MEDS: DICYCLOMINE HCL INJ 20 MG/2 ML VIAL IM (10:34)
[2023-01-21] MEDS: SODIUM CHLORIDE 0.9% IV 1,000 ML 999 ML IV CONT (10:34)
--- NOTE | 2023-01-21 11:17 | ECG_ITS ---
Measurements Intervals [place] Rate: 63 P: 72 [place]: 210 QRS: 75 QRSD: 108 T: 63 QT: 401 QTc: 414 Interpretive Statements SINUS RHYTHM WITH FIRST DEGREE AV BLOCK INCOMPLETE RIGHT BUNDLE BRANCH BLOCK BORDERLINE ECG COMPARED TO ECG 05/06/2022 19:00:08 NO SIGNIFICANT CHANGES Electronically Signed On 01-21-2023 16:56:48 CDT by Lloyd Hu D.O.
[2023-01-21 11:31] VITALS: BP 118/87; PULSE 63; RESP 12; O2SAT 100
[2023-01-21 11:49] LABS: Troponin I < 0.012 ng/mL (0.000-0.034)
== END 2023-01-21 12:21 | disposition home or self-care (01) ==
PROVIDERS: Emergency Provider Nurse Practitioner; PCP Family Medicine
DX: K50.10 Crohn's disease of large intestine without complications (principal); F41.8 Other specified anxiety disorders; I45.10 Unspecified right bundle-branch block; K21.9 Gastro-esophageal reflux disease without esophagitis
CPT/HCPCS: 36415; 80053; 81003; 83690; 84484; 85025; 93005; 96361; 96372; 96374; 99284; J0500; J1720; J7030

== ENCOUNTER 2023-05-16 15:08 | Emergency (ER) | payer OTHER, SELFPAY ==
--- NOTE | ~2023-05-16 | CT_ITS ---
EXAMINATION: CT abdomen pelvis w con DATE: 05/16/2023 16:54 INDICATION: Right abdominal pain. History of Crohn's. Nausea, diarrhea. TECHNIQUE: Computed tomography (CT) of the abdomen and pelvis was performed with 100 CC Omnipaque 350 intravenous contrast. Automated exposure control and iterative reconstruction technique were employe d. Exam dose: 365.84 mGy-cm total exam DLP. COMPARISON: 05/06/2022 CT abdomen pelvis FINDINGS: The lung bases are clear. Normal heart size. No pericardial or pleural effusion. Small sliding hiatal hernia. Several very small hypoattenuating hepatic lesions, too small to definitively characterize, possibly small cysts. The gallbladder appears unremarkable. No bile duct or pancreatic duct dilatation. No gerber creatic mass lesion or calcification. Normal splenic size. Normal morphology of the adrenal glands. No renal mass lesion or urinary tract calculus or hydroureteronephrosis. The urinary bladder and pros roman gland are unremarkable. Small fat-containing right inguinal hernia. Normal caliber of the abdominal aorta. No intraperitoneal or retroperitoneal or pelvic mass lesion or adenopathy or ascites. There is soft tissue thickening of the wall of the distal ileum and terminal ileum, with mucosal enha ncement. The sacroiliac joints are intact. Included skeletal structures are unremarkable. IMPRESSION: Mild soft tissue thickening and mucosal enhancement of the distal ileum and terminal ile um, which may indicate active inflammation from known Crohn's disease No obstruction or intraperitoneal free air Small sliding hiatal Reviewed, dictated and finalized at Location A. Reviewed, dictated and finalized at location L. OGY DEPARTMENT CHAIR IMPRESSION: Mild soft tissue thickening and mucosal enhancement of the distal ileum and terminal ileum, which may indicate active inflammation from known [place] hn's disease No obstruction or intraperitoneal free air Small sliding hiatal
[2023-05-16 15:21] VITALS: BP 119/83; PULSE 92; RESP 16; TEMP 36.2; O2SAT 99
[2023-05-16 16:23] LABS: Basophils Percent Auto 0.5 % (0.2-1.2); Eosinophils Absolute Auto 0.1 K/mm3 (0-0.3); Eosinophils Percent Auto 1.7 % (0-4.4); Hematocrit 39.2 % (42.0-52.0); Hemoglobin 12.6 g/dL (14.0-18.0); Immature Granulocyte Absolute 0.02 K/mm3 (0.00-0.031); Immature Granulocyte Percent A 0.2 % (0-0.5); Lymphocytes Absolute Auto 2.69 K/mm3 (0.9-3.2); Lymphocytes Percent Auto 32.1 % (18.3-44.2); Mean Corpuscular HGB Conc 32.1 g/dl (32-36); Mean Corpuscular Hemoglobin 26.5 pg (26-34); Mean Corpuscular Volume 82.4 fl (80-100); Mean Platelet Volume 9.6 fl (7.4-10.4); Monocytes Absolute Auto 0.7 K/mm3 (0.1-0.6); Monocytes Percent Auto 8.1 % (2.6-8.5); Neutrophils Absolute Auto 4.8 K/mm3 (1.3-6.7); Neutrophils Percent Auto 57.4 % (45.5-73.1); Platelet Count Result 344 k/mm3 (150-375); Red Blood Count 4.76 M/mm3 (4.6-6.20); Red Cell Distribution Width 14.8 % (11.5-14.5); White Blood Count 8.4 K/mm3 (4.5-10.0)
--- NOTE | 2023-05-16 16:29 | ED.ABDPAIN ---
HPI - Abdominal Pain General Chief Complaint: Abdominal Pain <MICHELLE Henderson Last Filed: 05/16/23 16:39> Stated Complaint: Abdominal pain <MICHELLE Henderson Last Filed: 05/16/23 16:39> Time Seen by Provider: 05/16/23 19:43 <Kellen Jessica PA-C - Last Filed: 05/16/23 16:39> Source: patient and old records reviewed <MICHELLE Henderson Last Filed: 05/16/23 16:39> Mode of arrival: ambulatory <MICHELLE Henderson Last Filed: 05/16/23 16:39> Limitations: no limitations <MICHELLE Henderson Last Filed: 05/16/23 16:39> History of Present Illness HPI narrative: Patient is a 48-year-old male, with past medical history of Crohn's disease on [facility], who presents the ED with report of abdominal pain. Patient believes he is having a Crohn's flare. He reports having worsening pain over the last 2 days, pain typically localized around his umbilical region and has also began radiating up to his esophagus. He does take pantoprazole for GERD. Reports nausea, fevers, up to 101F last night. He has been taking Tylenol for fevers. He notes that diarrhea is fairly usual for him. Denies vomiting. Denies rectal bleeding or melena. Denies recent cough or cold symptoms. Patient contacted his GI doctor, Dr. Burr and was referred to the ED for further evaluation. States his last flare was in January of last year <MICHELLE Henderson Last Filed: 05/16/23 16:39> Related Data Allergies/Adverse Reactions: Allergies Allergy/AdvReac Type Severity Reaction Status Date / Time No Known Allergies Allergy Verified 02/01/23 15:35 <MICHELLE Henderson Last Filed: 05/16/23 16:39> Review of Systems Review of Systems: CONSTITUTIONAL: See HPI. CARDIOVASCULAR: Denies chest pain. RESPIRATORY: Denies cough or dyspnea. GASTROINTESTINAL: See HPI GENITOURINARY: Denies dysuria or hematuria. <Kellen Jessica PA-C - Last Filed: 05/16/23 16:39> All systems reviewed & are unremarkable except as noted in HPI and below <Kellen Jessica PA-C - Last Filed: 05/16/23 16:39> [facility] Past Medical History Medical History: Medical History Anxiety Crohn's colitis GERD (gastroesophageal reflux disease) <Kellen Jessica PA-C - Last Filed: 05/16/23 16:39> Surgical History Surgical History: Surgical History History of colonoscopy August of [address] Burr. Colon biopsies benign. Biopsy of terminal ileum showed nonspecific moderate chronic ileitis. Hx of tonsillectomy <Kellen Jessica PA-C - Last Filed: 05/16/23 16:39> Family History Family History: Family History Father Malignant neoplasm of prostate Gallbladder disease Prostate carcinoma Mother Overdose of opiate or related narcotic Hypertension Sibling No problems noted. Other Family history of arthritis <Kellen Jessica PA-C - Last Filed: 05/16/23 16:39> Social History Social History: Social History Social History: His is durable power banking 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 Smoking packs per day: 0.5 Smoking cigarettes per day: 10.0 Years smoked: 10 Smoking pack-years: 5.00 Smoking status: Former smoker Tobacco type: cigarettes Second hand tobacco smoke exposure: No Smoking end date: 02/21/17 Additional smoking assessment comments: Quit smoking a few years ago. Smoked about 0.5 PPD for 10 years. Alcohol intake: former Drinks per week: 1 Alcohol use details: Rare. Substance use: never Substance use type: does not use Living arrangements: with family Additional living arrangements comments: Lives with his and two children,
[2023-05-16 16:33] LABS: Alanine Aminotransferase 20 U/L (6-50); Albumin Level 4.1 g/dL (3.5-5.1); Alkaline Phosphatase 90 U/L (38-126); Anion Gap 7 mmol/L (8-16); Aspartate Amino Transferase 25 U/L (17-59); Bilirubin,Total 0.6 mg/dL (0.2-1.3); Blood Urea Nitrogen 8 mg/dL (9-20); Carbon Dioxide 24 mmol/L (22-30); Chloride 107 mmol/L (98-107); Estimated Glomerular Filt Rate > 60; Glucose 94 mg/dL (65-110); Lipase 110 U/L (23-300); Potassium 3.8 mmol/L (3.4-5.0); Sodium 138 mmol/L (137-145)
[2023-05-16] MEDS: ONDANSETRON HCL ODT 4 MG TABLET PO (16:37)
[2023-05-16] MEDS: BELLADONNA ALK/PHENOB ELIX 10 ML, MAG HYDROX/ALUMINUM HYD/SIMETH 30 ML, LIDOCAINE HCL 2... PO (16:38)
[2023-05-16 17:05] LABS: Appearance Urine Clear (Clear); Bilirubin Urine Negative (Negative); Blood Urine Negative (Negative); Color Urine Yellow (Yellow); Glucose Urine UA Negative (Negative); Ketones Urine Negative (Negative); Leukocyte Esterase Ur Negative LEU/UL (Negative); Nitrate Urine Negative (Negative); Protein Urine Negative (Negative); Specific Grav Ur 1.003 (1.001-1.035); Urobilinogen Urine 0.2 mg/dL (<2.0)
[2023-05-16 17:09] LABS: Add Urine Microscopic? NO
[2023-05-16 19:45] VITALS: O2SAT 98
[2023-05-16 20:04] VITALS: O2SAT 99
[2023-05-16 20:18] VITALS: O2SAT 99
[2023-05-16 20:36] VITALS: BP 120/84; PULSE 69; RESP 16; O2SAT 98
== END 2023-05-16 20:37 | disposition home or self-care (01) ==
LOC: ANHED 20:24
PROVIDERS: Emergency Medicine; Emergency Provider Physician Assistant; PCP Family Medicine
DX: K50.90 Crohn's disease, unspecified, without complications (principal); F41.9 Anxiety disorder, unspecified; K21.9 Gastro-esophageal reflux disease without esophagitis
CPT/HCPCS: 36415; 74177; 80053; 81003; 83690; 85025; 99284; A9270; Q9967

== ENCOUNTER 2023-06-22 07:17 | Outpatient (CLI) | payer OTHER, SELFPAY ==
[2023-06-29 19:22] LABS: Calprotectin, Stool 707 mcg/g
== END 2023-06-22 07:18 | disposition home or self-care (01) ==
LOC: ANHLAB 07:18
PROVIDERS: PCP Family Medicine; Visit Provider Internal Medicine Gastroenterology
DX: K50.919 Crohn's disease, unspecified, with unspecified complications (principal); R19.7 Diarrhea, unspecified
CPT/HCPCS: 83993

== ENCOUNTER 2023-10-14 07:25 | Outpatient (CLI) | payer OTHER, SELFPAY ==
[2023-10-14 07:56] LABS: Hematocrit 38.3 % (42.0-52.0); Hemoglobin 12.1 g/dL (14.0-18.0); Mean Corpuscular HGB Conc 31.6 g/dl (32-36); Mean Corpuscular Hemoglobin 25.5 pg (26-34); Mean Corpuscular Volume 80.6 fl (80-100); Mean Platelet Volume 9.3 fl (7.4-10.4); Platelet Count Result 404 k/mm3 (150-375); Red Blood Count 4.75 M/mm3 (4.6-6.20); Red Cell Distribution Width 16.6 % (11.5-14.5); White Blood Count 7.1 K/mm3 (4.5-10.0)
[2023-10-14 08:08] LABS: Anion Gap 5 mmol/L (4-12); Blood Urea Nitrogen 9 mg/dL (9-20); Calcium 9.2 mg/dL (8.4-10.2); Carbon Dioxide 24 mmol/L (22-30); Chloride 109 mmol/L (98-107); Cholesterol 176 mg/dL (0-200); Estimated Glomerular Filt Rate > 60; Glucose 95 mg/dL (65-110); HDL Direct 37 mg/dL; Potassium 4.2 mmol/L (3.4-5.0); Sodium 138 mmol/L (137-145); Triglycerides 144 mg/dL (<150)
[2023-10-14 08:19] LABS: LDL Cholesterol Direct 111 mg/dL
[2023-10-14 08:38] LABS: Prostate Specific Antigen 1.2 ng/mL (< OR = 4.0)
[2023-10-17 13:03] LABS: NIL 0.08 IU/mL; Quantiferon TB Plus, 1T NEGATIVE (NEGATIVE); TB1-NIL 0.02 IU/mL; TB2-NIL 0.01 IU/mL
== END 2023-10-14 07:26 | disposition home or self-care (01) ==
LOC: ANHLAB 07:27
PROVIDERS: Internal Medicine Gastroenterology; PCP Family Medicine; Visit Provider Nurse Practitioner Family
DX: K50.80 Crohn's disease of both small and large intestine without complications (principal); F41.9 Anxiety disorder, unspecified; Z12.5 Encounter for screening for malignant neoplasm of prostate; Z80.42 Family history of malignant neoplasm of prostate; E78.00 Pure hypercholesterolemia, unspecified
CPT/HCPCS: 36415; 80048; 80061; 84153; 84443; 85027; 86480

== ENCOUNTER 2023-10-28 08:17 | Outpatient (CLI) | payer OTHER, SELFPAY ==
[2023-10-28 09:09] LABS: Hematocrit 38.4 % (42.0-52.0); Hemoglobin 12.2 g/dL (14.0-18.0); Mean Corpuscular HGB Conc 31.8 g/dl (32-36); Mean Corpuscular Hemoglobin 25.7 pg (26-34); Mean Corpuscular Volume 80.8 fl (80-100); Mean Platelet Volume 9.8 fl (7.4-10.4); Platelet Count Result 337 k/mm3 (150-375); Red Blood Count 4.75 M/mm3 (4.6-6.20)
[2023-10-28 09:28] LABS: Iron 39 ug/dL (49-181)
[2023-10-28 10:13] LABS: Folic Acid 6.5 ng/mL (2.76->20)
== END 2023-10-28 08:18 | disposition home or self-care (01) ==
LOC: ANHLAB 08:18
PROVIDERS: PCP Family Medicine; Visit Provider Nurse Practitioner Family
DX: D64.9 Anemia, unspecified (principal); R79.89 Other specified abnormal findings of blood chemistry
CPT/HCPCS: 36415; 82607; 82746; 83540; 85027

== ENCOUNTER 2023-11-15 14:59 | Outpatient (CLI) | payer OTHER, SELFPAY ==
[2023-11-15 15:17] LABS: Basophils Percent Auto 0.5 % (0.2-1.2); Eosinophils Absolute Auto 0.2 K/mm3 (0-0.3); Eosinophils Percent Auto 2.6 % (0-4.4); Hematocrit 40.1 % (42.0-52.0); Hemoglobin 12.8 g/dL (14.0-18.0); Immature Granulocyte Absolute 0.01 K/mm3 (0.00-0.031); Immature Granulocyte Percent A 0.1 % (0-0.5); Lymphocytes Absolute Auto 2.47 K/mm3 (0.9-3.2); Lymphocytes Percent Auto 30.2 % (18.3-44.2); Mean Corpuscular HGB Conc 31.9 g/dl (32-36); Mean Corpuscular Hemoglobin 25.5 pg (26-34); Mean Platelet Volume 9.4 fl (7.4-10.4); Monocytes Absolute Auto 0.6 K/mm3 (0.1-0.6); Monocytes Percent Auto 7.3 % (2.6-8.5); Neutrophils Absolute Auto 4.8 K/mm3 (1.3-6.7); Neutrophils Percent Auto 59.3 % (45.5-73.1); Platelet Count Result 325 k/mm3 (150-375); Red Blood Count 5.01 M/mm3 (4.6-6.20); Red Cell Distribution Width 17.7 % (11.5-14.5); White Blood Count 8.2 K/mm3 (4.5-10.0)
[2023-11-15 15:22] LABS: Anisocytosis 1+; Microcytosis 1+ (NORMAL); Platelet Estimate Adequate (Adequate); Schistocytes None Seen
[2023-11-15 15:23] LABS: Giant Platelets Present
[2023-11-15 16:36] LABS: Iron 27 ug/dL (49-181)
[2023-11-15 16:38] LABS: Alanine Aminotransferase 25 U/L (6-50); Albumin Level 4.5 g/dL (3.5-5.1); Alkaline Phosphatase 105 U/L (38-126); Anion Gap 8 mmol/L (4-12); Aspartate Amino Transferase 25 U/L (17-59); Bilirubin,Total 0.5 mg/dL (0.2-1.3); Blood Urea Nitrogen 9 mg/dL (9-20); Calcium 9.3 mg/dL (8.4-10.2); Carbon Dioxide 25 mmol/L (22-30); Chloride 105 mmol/L (98-107); Estimated Glomerular Filt Rate > 60; Glucose 93 mg/dL (65-110); Lactate Dehydrogenase 148 U/L (120-246); Potassium 3.8 mmol/L (3.4-5.0); Sodium 138 mmol/L (137-145)
[2023-11-15 16:46] LABS: Percent Iron Saturation 6 % (20-50)
[2023-11-15 17:12] LABS: Ferritin 6.01 ng/mL (17.9-464)
[2023-11-18 17:24] LABS: Methylmalonic Acid 90 nmol/L (55-335)
[2023-11-21 13:43] LABS: Soluble Transferrin Receptor 1.56 mg/L (0.76-1.76)
== END 2023-11-15 15:00 | disposition home or self-care (01) ==
LOC: ANHLAB 15:01
PROVIDERS: Nurse Practitioner Family; PCP Family Medicine; Visit Provider Internal Medicine Hematology & Oncology
DX: D50.0 Iron deficiency anemia secondary to blood loss (chronic) (principal); E53.8 Deficiency of other specified B group vitamins
CPT/HCPCS: 36415; 80053; 82607; 82728; 82746; 83540; 83550; 83615; 83921; 84238; 85025

== ENCOUNTER 2024-01-03 07:20 | Outpatient (CLI) | payer OTHER, SELFPAY ==
[2024-01-09 21:47] LABS: Calprotectin, Stool 292 mcg/g
== END 2024-01-03 07:21 | disposition home or self-care (01) ==
LOC: ANHLAB 07:21
PROVIDERS: PCP Family Medicine; Visit Provider Nurse Practitioner Family
DX: K50.10 Crohn's disease of large intestine without complications (principal)
CPT/HCPCS: 83993

== ENCOUNTER 2024-02-16 16:54 | Emergency (ER) | payer OTHER, SELFPAY ==
[2024-02-16 16:57] VITALS: BP 130/88; PULSE 87; RESP 18; TEMP 36.6; O2SAT 99
--- NOTE | 2024-02-16 17:10 | ED.EXTPRO ---
HPI - Extremity Problem General Chief complaint: Extremity Problem,Nontraumatic Stated complaint: off and on arm tingling-began a couple days ago Time Seen by Provider: 02/16/24 17:01 History of Present Illness HPI Narrative: 49-year-old male presents with intermittent shooting pain down left arm. Patient states symptoms started when he woke up this morning. Patient denies any trauma or injury. Patient denies chest pain. Patient has a history of Crohn's disease. Patient denies any other symptoms Related Data Allergies Allergy/AdvReac Type Severity Reaction Status Date / Time No Known Allergies Allergy Verified 02/16/24 16:55 Review of Systems Review of Systems: A 10 system review of systems was completed on the patient and is negative except for what is stated in the HPI. Nursing and ancillary documentation was reviewed. PENDING SALE TO [facility] Past Medical History Medical History (Updated 02/16/24 @ 17:14 by Parag Gates APRN) Abscess of male pelvis Anxiety Crohn's colitis Elevated fecal calprotectin Fever GERD (gastroesophageal reflux disease) Iron deficiency anemia Terminal ileitis Surgical History Surgical History History of colonoscopy August of [address] Burr. Colon biopsies benign. Biopsy of terminal ileum showed nonspecific moderate chronic ileitis. Hx of tonsillectomy Family History Family History Father Malignant neoplasm of prostate Gallbladder disease Prostate carcinoma Mother Overdose of opiate or related narcotic Hypertension Sibling No problems noted. 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 Smoking packs per day: 0.5 Smoking cigarettes per day: 10.0 Years smoked: 10 Smoking pack-years: 5.00 Smoking status: Former smoker Tobacco type: cigarettes Second hand tobacco smoke exposure: No Smoking end date: 02/21/17 Additional smoking assessment comments: Quit smoking a few years ago. Smoked about 0.5 PPD for 10 years. Alcohol intake: former Drinks per week: 1 Alcohol use details: Rare. Substance use: never Substance use type: does not use Do You Feel Safe in your Home?: Yes Lack of Transportation: No Lack of Food: Never True Current Housing: I Have Housing Concerned About Future Housing: No Difficulty Paying Gas/Electric Bills: No Difficulty Paying for Meds: No Currently Unemployed: No Education: Bachelor's Degree Difficulty w/ Childcare or Family Care: No Living arrangements: with family Additional living arrangements comments: Lives with his and two children, 15 and 17 years old. 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 Gender identity (if verbalized by the patient): Male Spiritual care concerns: No Agree to blood products: Yes Exam Narrative: GENERAL: Well-appearing, well-nourished, and in no acute distress. HEAD: Normocephalic, atraumatic. EYES: PERRLA and EOMI. ENT: Nares clear, no rhinorrhea or epistaxis. Mucous membranes moist. NECK: Supple, tenderness to left trapezius. muscle spasm palpated that reciprocated symptoms CHEST: Clear to auscultation. No respiratory distress. HEART: Regular rate and rhythm. No murmur heard. Normal peripheral pulses. ABDOMEN: Soft, nontender, nondistended, normal active bowel sounds. EXTREMITIES: Normal range of motion. No edema. SKIN: Warm, dry, no rash. NEURO: No focal deficits. Alert and oriented x3. PSYCH: Normal mood and affect. Course Course Emergency Course: Patient has cervical radiculopathy. Will prescribe muscle relaxers and NSAIDs. Vital Signs Vital signs: Vital Signs Temperat
== END 2024-02-16 18:00 | disposition home or self-care (01) ==
LOC: ANHED 17:34
PROVIDERS: Emergency Provider Nurse Practitioner Family; PCP Family Medicine
DX: M54.12 Radiculopathy, cervical region (principal); K50.90 Crohn's disease, unspecified, without complications; F41.9 Anxiety disorder, unspecified; K21.9 Gastro-esophageal reflux disease without esophagitis; Z87.891 Personal history of nicotine dependence
CPT/HCPCS: 99283

== ENCOUNTER 2024-02-26 08:45 | Outpatient (CLI) | payer OTHER, SELFPAY ==
[2024-02-26 09:01] LABS: Basophils Percent Auto 0.6 % (0.2-1.2); Eosinophils Absolute Auto 0.2 K/mm3 (0-0.3); Eosinophils Percent Auto 3.4 % (0-4.4); Hematocrit 43.2 % (42.0-52.0); Hemoglobin 14.6 g/dL (14.0-18.0); Immature Granulocyte Absolute 0.02 K/mm3 (0.00-0.031); Immature Granulocyte Percent A 0.3 % (0-0.5); Lymphocytes Absolute Auto 2.65 K/mm3 (0.9-3.2); Lymphocytes Percent Auto 40.5 % (18.3-44.2); Mean Corpuscular HGB Conc 33.8 g/dl (32-36); Mean Corpuscular Hemoglobin 28.5 pg (26-34); Mean Corpuscular Volume 84.2 fl (80-100); Monocytes Absolute Auto 0.6 K/mm3 (0.1-0.6); Monocytes Percent Auto 8.4 % (2.6-8.5); Neutrophils Absolute Auto 3.1 K/mm3 (1.3-6.7); Neutrophils Percent Auto 46.8 % (45.5-73.1); Platelet Count Result 275 k/mm3 (150-375); Red Blood Count 5.13 M/mm3 (4.6-6.20); Red Cell Distribution Width 15.2 % (11.5-14.5); White Blood Count 6.5 K/mm3 (4.5-10.0)
[2024-02-26 09:32] LABS: Alanine Aminotransferase 20 U/L (6-50); Albumin Level 4.3 g/dL (3.5-5.1); Alkaline Phosphatase 86 U/L (38-126); Anion Gap 6 mmol/L (4-12); Aspartate Amino Transferase 34 U/L (17-59); Bilirubin,Total 0.5 mg/dL (0.2-1.3); Blood Urea Nitrogen 10 mg/dL (9-20); Calcium 9.3 mg/dL (8.4-10.2); Carbon Dioxide 28 mmol/L (22-30); Chloride 104 mmol/L (98-107); Estimated Glomerular Filt Rate > 60; Glucose 87 mg/dL (65-110); Lactate Dehydrogenase 137 U/L (120-246); Potassium 3.9 mmol/L (3.4-5.0); Sodium 138 mmol/L (137-145)
[2024-02-26 10:22] LABS: Iron 138 ug/dL (49-181)
[2024-02-26 10:32] LABS: Folic Acid 6.5 ng/mL (2.76->20)
[2024-02-26 10:33] LABS: Percent Iron Saturation 37 % (20-50)
[2024-03-04 04:13] LABS: Methylmalonic Acid 176 nmol/L (55-335)
== END 2024-02-26 08:46 | disposition home or self-care (01) ==
LOC: ANHLAB 08:47
PROVIDERS: Nurse Practitioner Family; PCP Family Medicine; Visit Provider Internal Medicine Hematology & Oncology
DX: D50.0 Iron deficiency anemia secondary to blood loss (chronic) (principal)
CPT/HCPCS: 36415; 80053; 82607; 82728; 82746; 83540; 83550; 83615; 83921; 84238; 85025

== ENCOUNTER 2024-05-27 09:40 | Outpatient (CLI) | payer OTHER, SELFPAY ==
[2024-05-30 10:03] LABS: Lactoferrin, Stool COMMENT:
== END 2024-05-27 09:41 | disposition home or self-care (01) ==
LOC: ANHLAB 09:41
PROVIDERS: PCP Family Medicine; Visit Provider Nurse Practitioner Family
DX: R19.5 Other fecal abnormalities (principal); K50.10 Crohn's disease of large intestine without complications; R19.7 Diarrhea, unspecified
CPT/HCPCS: 83630; 83993

== ENCOUNTER 2024-09-28 18:16 | Emergency (ER) | payer OTHER, SELFPAY ==
[2024-09-28 18:23] VITALS: BP 119/86; PULSE 82; RESP 16; TEMP 36.8; O2SAT 98
--- NOTE | 2024-09-28 18:23 | ED_ITS ---
HPI - URI/Sore Throat General Chief Complaint: Upper Respiratory Infection Stated Complaint: sinus infection Time Seen by Provider: 09/28/24 18:23 Source: patient Mode of arrival: ambulatory Limitations: no limitations History of Present Illness HPI Narrative: 49-year-old male presents with complaint of sinus congestion, sinus pressure, postnasal drainage for 7-8 days. Reports today having increase in symptoms, coughing, fatigue. Concern for bacterial sinusitis. Using a antihistamine nasal spray. Tried Zyrtec a few times without relief of symptoms. No chest pain or shortness of breath. All systems reviewed and negative except as noted above. Related Data Allergies Allergy/AdvReac Type Severity Reaction Status Date / Time No Known Allergies Allergy Verified 09/28/24 18:27 Review of Systems Review of Systems: CONSTITUTIONAL: Denies fever, chills, or sweats. Reports fatigue. EYES: Denies visual changes, redness, or discharge. ENT: Reports rhinorrhea, congestion. Denies sore throat, or otalgia. CARDIOVASCULAR: Denies chest pain, palpitations, or edema. RESPIRATORY: Reports cough. Denies dyspnea. GASTROINTESTINAL: Denies abdominal pain, nausea, vomiting, or diarrhea. GENITOURINARY: Denies dysuria or hematuria. SKIN: Denies rash or itching. MUSCULOSKELETAL: Denies back pain, joint pain, or myalgia. NEUROLOGIC: Denies headache, numbness, or weakness. PSYCHIATRIC: Denies anxiety or depression. All other systems reviewed are negative, except as documented in HPI. [facility] Past Medical History Medical History Elevated fecal calprotectin Iron deficiency anemia Fever Crohn's colitis Terminal ileitis Abscess of male pelvis GERD (gastroesophageal reflux disease) Anxiety Surgical History Surgical History History of colonoscopy August of [address] Burr. Colon biopsies benign. Biopsy of terminal ileum showed nonspecific moderate chronic ileitis. Hx of tonsillectomy Family History Family History Father Malignant neoplasm of prostate Gallbladder disease Prostate carcinoma Mother Overdose of opiate or related narcotic Hypertension Sibling No problems noted. 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 Smoking packs per day: 0.5 Smoking cigarettes per day: 10.0 Years smoked: 10 Smoking pack-years: 5.00 Smoking status: Former smoker Tobacco type: cigarettes Second hand tobacco smoke exposure: No Smoking end date: 02/21/17 Additional smoking assessment comments: Quit smoking a few years ago. Smoked about 0.5 PPD for 10 years. Alcohol intake: former Drinks per week: 1 Alcohol use details: Rare. Substance use: never Substance use type: does not use Do You Feel Safe in your Home?: Yes Lack of Transportation: No Lack of Food: Never True Current Housing: I Have Housing Concerned About Future Housing: No Difficulty Paying Gas/Electric Bills: No Difficulty Paying for Meds: No Currently Unemployed: No Education: Bachelor's Degree Difficulty w/ Childcare or Family Care: No Living arrangements: with family Additional living arrangements comments: Lives with his and two children, 15 and 17 years old. 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 Gender identity (if verbalized by the patient): Male Spiritual care concerns: No Agree to blood products: Yes Comments At time of signature, agree with nursing past medical, surgical, social and family history. There is no relevant family history pertinent to the presenting complaint. Exam Narrative: GENERAL: This is a well-nourished, well-developed patient, in no apparent distress. HEAD: normocephalic, atraumatic. EYES: PERRL. Sclera clear/white. Vision is grossly intact. EARS: External ears normal, auditory canals clear and without drainage, fluid bilateral TMs without erythema or perforation. Hearing grossly intact. NOSE: External nose normal with purulent nasal drainage, erythema to bilateral nares, maxillary sinus tenderness on palpation THROAT: Mucous membranes moist, erythema postnasal drainage NECK: Neck supple, non-tender without lymphadenopathy, masses or thyromegaly. CARDIOVASCULAR: Regular rate and rhythm without murmurs, gallops, or rubs. RESPIRATORY: Clear to auscultation. Breath sounds equal bilaterally. No wheezes, rales, or rhonchi. SKIN: warm, Dry, intact with no suspicious lesions or rash, good texture and turgor. NEURO: awake, alert, and oriented to person, place and time. There were no obvious focal neurologic abnormalities. EXTREMITIES: No joint tenderness, effusion, or edema noted. Course Course Level of Care: Express Care Visit Vital Signs Vital signs: Vital Signs Temperature 36.8 C 09/28/24 18:23 Pulse Rate 82 09/28/24 18:23 Respiratory Rate 16 09/28/24 18:23 Blood Pressure 119/86 09/28/24 18:23 Pulse Oximetry 98 09/28/24 18:23 Temperature 36.8 C 09/28/24 18:23 Pulse Rate 82 09/28/24 18:23 Respiratory Rate 16 09/28/24 18:23 Blood Pressure 119/86 09/28/24 18:23 Pulse Oximetry 98 09/28/24 18:23 Reviewed MDM - URI/Sore Throat MDM Narrative Medical decision making narrative: Prescribing antibiotic for bacterial sinusitis due to duration of symptoms and exam findings. Patient is alert, nontoxic. Agrees with plan of care. Differential Diagnosis Differential diagnosis: Likely upper respiratory infection, sinusitis, viral infection and influenza Discharge Plan Discharge Clinical Impression: Acute bacterial sinusitis Patient Disposition: Home Condition: Stable Instructions: Antibiotic Form, Sinusitis (ED) Additional Instructions: Take medications as prescribed. Take Zyrtec daily. Drink at least 64 oz of water a day. Follow-up with your doctor if symptoms are not improving. Patient Language: Citizen Of [place] Prescriptions: New methylprednisolone [Medrol (Aravind)] 4 mg tablets,dose pack See Rx Instructions PO .COMPLEX Qty: 21 0RF Rx Instructions: orally per package directions amoxicillin-pot clavulanate 875-125 mg tablet 1 tablet PO Q12H 7 Days Qty: 14 0RF No Action Skyrizi 60 mg/mL solution 600 mg IV .COMPLEX Rx Instructions: 600 mg intravenously at week 0, 4, and 8; Skyrizi 180 mg/1.2 mL (150 mg/mL) wearable injector 180 mg subcut .COMPLEX Qty: 1.2 0RF Rx Instructions: 180 mg subcutaneously at week 12 and then every 8 weeks; pantoprazole 40 mg tablet,delayed release (DR/EC) 40 mg PO QAM Qty: 90 1RF Follow-up/Referrals: Chuy Lauren MD [Primary Care Provider] - Time of Disposition: 18:30
== END 2024-09-28 18:31 | disposition home or self-care (01) ==
PROVIDERS: Emergency Provider Nurse Practitioner Family; PCP Family Medicine
DX: J01.90 Acute sinusitis, unspecified (principal); Z87.891 Personal history of nicotine dependence; K50.90 Crohn's disease, unspecified, without complications; K21.9 Gastro-esophageal reflux disease without esophagitis
CPT/HCPCS: 99213; G0463

== ENCOUNTER 2024-10-25 09:04 | Outpatient (CLI) | payer OTHER, SELFPAY ==
[2024-10-25 09:19] LABS: Hematocrit 40.6 % (42.0-52.0); Hemoglobin 13.7 g/dL (14.0-18.0); Mean Corpuscular HGB Conc 33.7 g/dl (32-36); Mean Corpuscular Hemoglobin 28.9 pg (26-34); Mean Corpuscular Volume 85.7 fl (80-100); Platelet Count Result 266 k/mm3 (150-375); Red Blood Count 4.74 M/mm3 (4.6-6.20); Red Cell Distribution Width 13.6 % (11.5-14.5); White Blood Count 6.1 K/mm3 (4.5-10.0)
[2024-10-25 11:13] LABS: Alanine Aminotransferase 22 U/L (6-50); Alkaline Phosphatase 86 U/L (38-126); Anion Gap 6 mmol/L (4-12); Aspartate Amino Transferase 52 U/L (17-59); Bilirubin,Total 0.6 mg/dL (0.2-1.3); Blood Urea Nitrogen 8 mg/dL (9-20); Calcium 9.3 mg/dL (8.4-10.2); Carbon Dioxide 27 mmol/L (22-30); Chloride 105 mmol/L (98-107); Estimated Glomerular Filt Rate > 60; Glucose 92 mg/dL (65-110); Potassium 4.4 mmol/L (3.4-5.0); Sodium 138 mmol/L (137-145); Total Protein 7.3 g/dL (6.3-8.2)
[2024-10-25 11:20] LABS: Immunoglobulin A 404 mg/dL (70-400); Immunoglobulin G 1117 mg/dL (700-1600); Immunoglobulin M 114 mg/dL (40-230)
[2024-10-25 11:22] LABS: Iron 89 ug/dL (49-181)
[2024-10-25 11:33] LABS: Percent Iron Saturation 23 % (20-50)
[2024-10-25 12:17] LABS: Folic Acid 5.5 ng/mL (2.76->20)
== END 2024-10-25 09:05 | disposition home or self-care (01) ==
LOC: ANHLAB 09:05
PROVIDERS: PCP Family Medicine; Visit Provider Internal Medicine Hematology & Oncology
DX: D64.9 Anemia, unspecified (principal)
CPT/HCPCS: 36415; 80053; 82607; 82728; 82746; 82784; 83540; 83550; 85027

== ENCOUNTER 2024-11-04 18:17 | Emergency (ER) | payer OTHER, SELFPAY ==
--- OUTSIDE RECORDS SUMMARY | 2024-11-04 18:20 | XMS_ITS | Clinical Summary ---
Author Organization [facility] Address [address] [place] [address] Care Team Providers Care Replenishment Specialist Name Role Phone Chuy Lauren MD Primary Care Provider [phone] Source Comments [facility] [employer],non-owned Affiliates and Associated Physician Practices is amultiple site organization consisting of ambulatory clinics and hospital sitesin [place], [place], [place] and [place]. This disclosure is being madepursuant to the Care Everywhere program and may not contain all information available regarding this patient. Last updated 18.[facility] [employer] Social History Tobacco Use Types Packs/Day Years Used Date Smoking Tobacco: Never Assessed Sex and Gender Information Value Date Recorded Sex Assigned at Not on file Legal Sex Male 10:51 AM CDT Gender Identity Not on file Sexual Orientation Not on file Plan of Treatment Health Maintenance Due Date Last Done Comments COLOGUARD (AGES 45-75) - COL ON CA SCREENING 1977 COLON MONITORING 1977 COLONOSCOPY - COLON CA SCREENING 1977 CT COLONOGRAPHY - COLON CA SCREENING 1977 Colorectal Cancer Screening 1977 FIT - COLON CA SCREENING 1977 FLEX SIG - COLON CA SCREENING 1977 LIPID TESTING 1977 HIV SCREENING 02/11/1992 HEPATITIS C SCREENING 02/06/1995 DTAP/TDAP/TD VACCINES (1 - Tdap) 02/11/1996 HEPATITIS B VACCINE (1 of 3 - 19+ 3-dose series) 02/11/1996 COVID-19 VACCINE ( - 2023-2 5 season) 2024 DEPRESSION SCREENING 05/08/2024 INFLUENZA VACCINE (Season Ended) 2025 ZOSTER VACCINE (1 of 2) 2027 HIB VACCINE Aged Out No longer eligi ble based on patient's age to complete this topic HPV VACCINE Aged Out No longer eligi ble based on patient's age to complete this topic MENINGOCOCCAL (Group B) VACC INE SHARED DECISION-MAKING Aged Out No longer eligibl e based on patient's age to complete this topic MENINGOCOCCAL GROUPS A/C/Y/W VACCINE Aged Out No longer eligible b ased on patient's age to complete this topic PNEUMOCOCCAL VACCINE Aged Out No long er eligible based on patient's age to complete this topic Insurance AETNA Care Teams Replenishment Specialist Relationship Specialty Start Date End Date Chuy Lauren MD [address] [place] [address] PCP - General 08/29/17
--- OUTSIDE RECORDS SUMMARY | 2024-11-04 18:20 | XMS_ITS | Encounter Summary ---
Author Organization [facility] Address [address] [place] [address] Care Team Providers Care Ribbing Machine Operator Name Role Phone Chuy Lauren MD Primary Care Provider [phone] Encounter Details Date Type Department Care Team (Late st Contact Info) Description 12/24/2021 Lab Requisition [facility] [address] [place] [address] Atul Guerra MD [address] [place] [address] Social History Tobacco Use Types Packs/Day Years Used Date Smoking Tobacco: Never Assessed Sex and Gender Information Value Date Recorded Sex Assigned at Not on file Legal Sex Male 10:51 AM CDT Gender Identity Not on file Sexual Orientation Not on file documented as of this encounter Plan of Treatment Not on file documented as of this encounter Procedures Procedure Name Priority Date/Time Associated Diagnosis Comments DERMATOPATHOLOGY Routine 12/23/2021 12:0 0 AM CDT documented in this encounter Results * DERMATOPATHOLOGY (12/23/2021 12:00 AM CDT) Case Report Dermatopathology Report Case: [id number] Authorizing Provider: Atul Guerra MD Collected: 12/23/2021 12:00 AM Ordering Location: [facility] Received: 12/24/2021 07:50 AM Pathologist: Holli Davidson MD Specimen: Skin, right neck 2 6:09 PM CDT DERMATOPATHOLOGY LABORATORY Final Diagnosis Specimen A. 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 Path#[id number] 2 6:09 PM CDT DERMATOPATHOLOGY LABORATORY Gross Description Specimen A: Received is one formalin filled container labeled with the patient's name and designated right neck. The specimen consists of a shave biopsy measuring 6x5x2 mm. Jar 0. 2 6:09 PM CDT DERMATOPATHOLOGY LABORATORY Microscopic Description Specimen A. SKIN, right neck: There are nests of melanocytes at the dermal-epidermal junction and within the dermis. 2 6:09 PM CDT DERMATOPATHOLOGY LABORATORY Disclaimer An external and internal positive and negative controls are appropriate for the histochemical, immunohistochemical and immunofluorescence stain(s) in this case (if any), except where stated explicitly. The performance characteristics of the stain(s) cited in this report were developed and its performance characteristic determined by the Dermatopathology Laboratory at [facility] [place], directed by Dr. Marily Nur. These tests need not be, and therefore are not, approved by the [place] Food and Drug Administration. The tests are used for clinical purposes. Billing Codes Specimen Charges Stain Charges 63719 1 2 6:09 PM CDT DERMATOPATHOLOGY LABORATORY Embedded Images 2 6:09 PM CDT DERMATOPATHOLOGY LABORATORY Pathology/Cytolog y TISSUE SPECIMEN FROM SKIN / Unknown 12/23/2021 12/24/2021 7:50 AM CDT Atul Guerra MD LAB - PATHOLOGY/CYTOLOGY ORDER CAMILO Final Result DERMATOPATHOLOGY LABORATORY [facility] - Department of Dermatology [facility] Special[facility] Medicine [address] [place] [address], [address] [place] [address], [facility] [phone] documented in this encounter Visit Diagnoses Not on filedocumented in this encounter Care Teams Ribbing Machine Operator Relationship Specialty Start Date End Date Chuy Lauren MD [address] [place] [address] PCP - General 08/29/17 documented as of this encounter
--- OUTSIDE RECORDS SUMMARY | 2024-11-04 18:20 | XMS_ITS | Clinical Summary ---
Author Organization [facility] Address [address] [place] [address] Care Team Providers Care Podiatric Foot And Ankle Specialist Name Role Phone Chuy Lauren MD Primary Care Provider [phone] Allergies No known active allergies Medications adalimumab (HUMIRA) 40 mg/0.8 mL Syringe Kit Inject by subcutaneous injection. Active escitalopram oxalate (LEXAPRO) 20 mg tablet Take 20 mg by mouth daily. Active budesonide (ENTOCORT EC) 3 mg Enteric Coated 24 hour capsule Take 3 Capsules by mouth daily. 01/25/20 24 Active cyanocobalamin (VITAMIN B-12) 1,000 mcg/mL Solution Inject 1 mL (1,000 mcg) by intramuscular injection every 14 days. 6 mL 2 04/02/20 24 Active Syringe with Needle, Disp, 1 mL 27 x 1/2 SyringeIndicat ions:B12 deficiency Use with B12 injections. 25 Each 10/09/19 25 Active Syringe with Needle, Disp, 1 mL 27 x 1/2 Syringe Use with B12 injections. 25 Each 12/21/19 24 025 Discontin ued(Reord er) Active Problems No known active problems Encounters Date Type Department Care Team Description 11/01/2024 Orders Only [facility] Oncology and Hematology - [address] [place] [address] Renny Meyers MD 10/08/2024 External Device Data STL ABSTRACTION Provider, Abstract 10/08/2024 Refill [facility] Oncology and Hematology - [address] [place] [address] Renny Meyers MD B12 deficiency (Primary Dx) 09/27/2024 Orders Only [facility] Oncology and Hematology - [address] [place] [address] Renny Meyers MD Chronic anemia (Primary Dx) 09/25/2024 External Device Data STL ABSTRACTION Provider, Abstract 09/24/2024 External Device Data STL ABSTRACTION Provider, Abstract 08/20/2024 External Device Data STL ABSTRACTION Provider, Abstract from Last 3 Months Family History Medical History Relation Name Comments No Known Problems Child 1 No Known Problems Child 2 Prostate Cancer Father No Known Problems Mother overdose No Known Problems Sister Relation Name Status Comments Child 1 Alive Child 2 Alive Father Alive Mother Sister Alive Social History Tobacco Use Types Packs/Day Years Used Date Smoking Tobacco: Former Cigarettes 0.5 11 Q uit: 02/16/2007 Smokeless Tobacco: Never Tobacco Cessation:Counseling Given: Not Answered Alcohol Use Standard Drinks/Week Comments Not Currently 0 (1 standard drink = 0.6 oz pure alcohol) Stopped when dx with crohns 5 yrs ago. Sex and Gender Information Value Date Recorded Sex Assigned at Not on file Legal Sex Male 10:58 AM CDT Gender Identity Not on file Sexual Orientation Not on file Last Filed Vital Signs Vital Sign Reading Time Taken Comments Blood Pressure 120/83 03/01/2024 11:07 AM CDT Pulse 79 03/01/2024 11:07 AM CDT Temperature 36.8 C (98.2 F) 03/01/2024 11:07 AM CDT Respiratory Rate 16 03/01/2024 11:07 AM CDT Oxygen Saturation 97% 03/01/2024 11:07 AM CDT Inhaled Oxygen Concentration - - Weight 77.1 kg (170 lb) 03/01/2024 11:07 AM CDT Height 193 cm (6' 4) 11/15/2023 2:22 PM CDT Body Mass Index 20.69 11/15/2023 2:22 PM CDT Plan of Treatment Upcoming Encounters Date Type Department Care Team (Late st Contact Info) Description 11/06/2024 11:15 AM CDT Office Visit [facility] Oncology and Hematology - [address] [place] [id number] Renny Meyers MD [address] [place] [address] Health Maintenance Due Date Last Done Comments DTAP/TDAP/TD VACCINES (1 - Tdap) 02/11/1996 HEPATITIS B VACCINES (1 of 3 - 19+ 3-dose series) 10/1995 COLORECTAL SCREENING 2022 Colorectal Cancer Screening 2022 FIT-DNA Q 3 years 2022 FIT/FOBT Q 1 year 2022 Flex Sig/CT Colonography Q 5 years 2022 INFLUENZA VACCINE (#1) 2023 Procedures Procedure Name Priority Date/Time Associated Diagnosis Comments COMPREHENSIVE METABOLIC PANEL Routine 10/25/2024 2:03 PM CDT BASIC METABOLIC PANEL Routine 10/25/2024 2:02 PM CDT CBC WITH DIFFERENTIAL Routine 10/25/2024 1:37 PM CDT from Last 3 Months Results * COMPREHENSIVE METABOLIC PANEL (10/25/2024 2:03 PM CDT) Blood us Renny Meyers MD CHEMISTRY ORDERABLES Final Resu lt * BASIC METABOLIC PANEL (10/25/2024 2:02 PM CDT) Blood us Renny Meyers MD CHEMISTRY ORDERABLES Final Resu lt * CBC WITH DIFFERENTIAL (10/25/2024 1:37 PM CDT) Blood us Renny Meyers MD HEMATOLOGY ORDERABLES Final Res ult from Last 3 Months Insurance AET[employer] CHOICE POS II Care Teams Podiatric Foot And Ankle Specialist Relationship Specialty Start Date End Date Chuy Lauren MD [address] [place] [address] PCP - General Family Practice 11/01/23
--- OUTSIDE RECORDS SUMMARY | 2024-11-04 18:20 | XMS_ITS | Encounter Summary ---
Author Organization [facility] [employer] [facility] Address [address] [place] [address] Care Team Providers Care Demonstrator Sewing Techniques Name Role Phone Chuy Lauren MD Primary Care Provider Encounter Details Date Type Department Care Team (Late Contact Info) Description 11/01/2024 Orders Only [facility] Oncology and Hematology - [address] [place] [address] Renny Meyers MD [facility] [employer] [address] [place] [address] Social History Tobacco Use Types Packs/Day Years Used Date Smoking Tobacco: Former Cigarettes 0.5 11 Q uit: 02/16/2007 Smokeless Tobacco: Never Alcohol Use Standard Drinks/Week Comments Not Currently 0 (1 standard drink = 0.6 oz pure alcohol) Stopped when dx with crohns 5 yrs ago. Sex and Gender Information Value Date Recorded Sex Assigned at Not on file Legal Sex Male 10:58 AM CDT Gender Identity Not on file Sexual Orientation Not on file documented as of this encounter Plan of Treatment Upcoming Encounters Date Type Department Care Team (Late Contact Info) Description 11/06/2024 11:15 AM CDT Office Visit [facility] Oncology and Hematology - [address] [place] [address] Renny Meyers MD [address] [place] [address] documented as of this encounter Procedures Procedure Name Priority Date/Time Associated Diagnosis Comments COMPREHENSIVE METABOLIC PANEL Routine 10/25/2024 2:03 PM CDT BASIC METABOLIC PANEL Routine 10/25/2024 2:02 PM CDT CBC WITH DIFFERENTIAL Routine 10/25/2024 1:37 PM CDT documented in this encounter Results * COMPREHENSIVE METABOLIC PANEL (10/25/2024 2:03 PM CDT) Blood us Renny Meyers MD CHEMISTRY ORDERABLES Final Resu lt * BASIC METABOLIC PANEL (10/25/2024 2:02 PM CDT) Blood us Renny Meyers MD CHEMISTRY ORDERABLES Final Resu lt * CBC WITH DIFFERENTIAL (10/25/2024 1:37 PM CDT) Blood us Renny Meyers MD HEMATOLOGY ORDERABLES Final Res ult documented in this encounter Visit Diagnoses Not on filedocumented in this encounter Care Teams Demonstrator Sewing Techniques Relationship Specialty Start Date End Date Chuy Lauren MD [address] [place] [id number] PCP - General Family Practice 11/01/23 documented as of this encounter
--- NOTE | 2024-11-04 18:22 | ECG_ITS ---
Test Date: 2024-11-04 19:20:55 Measurements Intervals [place] Rate: 78 P: 74 NM: 201 QRS: 90 QRSD: 125 T: 62 QT: 375 QTc: 429 Interpretive Statements SINUS RHYTHM INCOMPLETE RIGHT BUNDLE BRANCH BLOCK BASELINE ARTIFACT- I, II, III, AVR, AVL, AVF, V1-V6 BORDERLINE ECG No previous ECG available for comparison Electronically Signed On 11-04-2024 20:28:21 CDT by Lloyd Hu D.O.
--- NOTE | 2024-11-04 18:23 | ED.CHESTPAIN ---
HPI - Chest Pain General Chief Complaint: Recheck/Abnormal Lab/Rx <Emileemark Andino FACILITIES MAINTENANCE TECHNICIAN - Last Filed: 11/04/24 18:34> Stated Complaint: reaction to new med <Emileemark Andino APRN - Last Filed: 11/04/24 18:34> Time Seen by Provider: 11/04/24 18:20 <Emilee Andino FACILITIES MAINTENANCE TECHNICIAN - Last Filed: 11/04/24 18:34> Focused HPI: Patient is a 49-year-old male presents ER chest pain, headaches, and abdominal pain. He reports he has a history of Crohn's and was recently started on a new medication for it. Patient reports he got the infusion on Monday, 2 days ago. He reports he started experiencing symptoms shortly afterwards. Patient denies any shortness of breath, visual changes, or urinary symptoms. GENERAL: Well-appearing, well-nourished, and in no acute distress. HEAD: Normocephalic, atraumatic. CHEST: Clear to auscultation. ?No respiratory distress. HEART: Regular rate and rhythm.? NEURO: ?Alert and oriented x3. Patient screened in triage and initial orders placed.? ?Additional care and disposition to be based upon?diagnostic testing and treatment. <Emilee Andino, FACILITIES MAINTENANCE TECHNICIAN - Last Filed: 11/04/24 18:34> History of Present Illness HPI narrative: Agree with the above with the following additions/corrections: Patient presents with concern he is having a reaction to a new medication. He has a history of Crohn's and receives biologic infusions for this through home health. He had previously been on Hyrimoz/adalimunab. The initial plan was to start Rinvoq but insurance denied this and instead he started Skyrizi in September. He felt tired after dose 1 and Dose number 2. He received dose 3. On Monday and reports that he has been having nausea, abdominal pain, intermittent headache, and left-sided chest pain. Had previously been receiving iron infusions but not anylonger. He was due to start to self injections of medication in 4 weeks. His next GI appointment is in December ([facility]). He also has an appointment with his primary care physician Monday (Dr chilel) and with sewing machine mechanic Dr Meyers on Monday. <Hope Couch MD - Last Filed: 11/06/24 09:23> Related Data Allergies/Adverse Reactions: Allergies Allergy/AdvReac Type Severity Reaction Status Date / Time No Known Allergies Allergy Verified 11/06/24 09:05 <Emilee Andino APRN - Last Filed: 11/04/24 18:34> [facility] Past Medical History Medical History: Medical History Elevated fecal calprotectin Iron deficiency anemia Fever Crohn's colitis Terminal ileitis Abscess of male pelvis GERD (gastroesophageal reflux disease) Anxiety <Emilee Andino APRN - Last Filed: 11/04/24 18:34> Surgical History Surgical History: Surgical History History of colonoscopy August of [address] Burr. Colon biopsies benign. Biopsy of terminal ileum showed nonspecific moderate chronic ileitis. Hx of tonsillectomy <Emilee Andino APRN - Last Filed: 11/04/24 18:34> Family History Family History: Family History Father Malignant neoplasm of prostate Gallbladder disease Prostate carcinoma Mother Overdose of opiate or related narcotic Hypertension Sibling No problems noted. 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 Smoking packs per day: 0.5 Smoking cigarettes per day: 10.0 Years smoked: 10 Smoking pack-years: 5.00 Smoking status: Former smoker Tobacco type: cigarettes Second hand tobacco smoke exposure: No Smoking end date: 02/21/17 Additional smoking assessment comments: Quit smoking a few years ago. Smoked about 0.5 PPD for 10 years. Alcohol intake: former Drinks per week: 1 Alcohol use details: Rare. Substance use: never Substance use type: does not use Do You Feel Safe in your Home?: Yes Lack of Transportation: No Lack of Food: Never True Current Housing: I Have Housing Concerned About Future Housing: No Difficulty Paying Gas/Electric Bills: No Difficulty Paying for Meds: No Currently Unemployed: No Education: Bachelor's Degree Difficulty w/ Childcare or Family Care: No Living arrangements: with family Additional living arrangements comments: Lives with his and two children, 15 and 17 years old. 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 Gender identity (if verbalized by the patient): Male Spiritual care concerns: No Agree to blood products: Yes <Emilee Andino APRN - Last Filed: 11/04/24 18:34> Exam Narrative: GENERAL: Well-appearing, well-nourished, and in no acute distress. HEAD: Normocephalic, atraumatic. EYES: Non injected, non icteric ENT: Nares clear, no rhinorrhea or epistaxis. Gross auditory acuity intact. NECK: Supple. No meningismus. CHEST: Speaking in full sentences. No respiratory distress. HEART: Regular rate and rhythm. . ABDOMEN: Soft, nondistended. EXTREMITIES: Normal range of motion. No lower extremity edema. SKIN: Warm, dry, no rash. NEURO: No focal deficits. Alert and oriented. Answering questions. Following commands. Normal speech without aphasia or dysarthria. PSYCH: Normal mood and affect. <Hope Couch MD - Last Filed: 11/06/24 09:23> Course Vital Signs Vital signs: Vital Signs Temperature 98.1 F 11/04/24 18:24 Pulse Rate 85 11/04/24 18:24 Respiratory Rate 18 11/04/24 18:24 Blood Pressure 132/91 H 11/04/24 18:24 Pulse Oximetry 97 11/04/24 18:24 Oxygen Delivery Room Air 11/04/24 18:24 Temperature 98.1 F 11/04/24 18:24 Pulse Rate 64 11/04/24 22:30 Respiratory Rate 19 11/04/24 22:30 Blood Pressure 122/85 11/04/24 22:10 Pulse Oximetry 98 11/04/24 22:30 Oxygen Delivery Room Air 11/04/24 18:24 <Emilee Andino APRN - Last Filed: 11/04/24 18:34> Vital Signs Temperature 98.1 F 11/04/24 18:24 Pulse Rate 85 11/04/24 18:24 Respiratory Rate 18 11/04/24 18:24 Blood Pressure 132/91 H 11/04/24 18:24 Pulse Oximetry 97 11/04/24 18:24 Oxygen Delivery Room Air 11/04/24 18:24 Temperature 98.1 F 11/04/24 18:24 Pulse Rate 64 11/04/24 22:30 Respiratory Rate 19 11/04/24 22:30 Blood Pressure 122/85 11/04/24 22:10 Pulse Oximetry 98 11/04/24 22:30 Oxygen Delivery Room Air 11/04/24 18:24 <Hope Couch MD - Last Filed: 11/06/24 09:23> MDM - Chest Pain MDM Narrative Medical decision making narrative: Exceedingly pleasant 49-year-old male presents with concern for possible reaction to a someone new medication In the emergency department he is afebrile with acceptable vital signs, elevated diastolic blood pressure noted. Normocytic anemia stable from previous. Otherwise workup has been generally unremarkable without renal dysfunction, liver dysfunction, electrolyte abnormalities, etc. Discussed the often broad and vague side effects of the biologic/immunologic medications which he very well understands. He has upcoming appointments with his primary care physician sewing machine mechanic, and quality control scientist. Recommended shared decision making discuss risks and benefits as well as alternatives if it is felt that the symptoms he was experiencing are due to the infusion. Declines work note. <Hope Couch MD - Last Filed: 11/06/24 09:23> Medical Records Data Attestation: I reviewed the patient's medical records. <Hope Couch MD - Last Filed: 11/06/24 09:23> Medical records narrative: Reviewed GI notes regarding previous and current therapies <Hope Couch MD - Last Filed: 11/06/24 09:23> Lab Data Attestation: I reviewed the patient's lab results. <Hope Couch MD - Last Filed: 11/06/24 09:23> Result diagrams: 11/04/24 19:24 11/04/24 19:24 <Emilee Andino APRN - Last Filed: 11/04/24 18:34> Labs: Lab Results 11/04/24 11/04/24 Range/Units 19:24 20:06 WBC 8.9 (4.5-10.0) K/mm3 RBC 4.66 (4.6-6.20) M/mm3 Hgb 13.3 L (14.0-18.0) g/dL Hct 39.5 L (42.0-52.0) % MCV 84.8 (80-100) fl MCH 28.5 (26-34) pg MCHC 33.7 (32-36) g/dl RDW 14.0 (11.5-14.5) % Plt Count 287 (150-375) k/mm3 MPV 9.4 (7.4-10.4) fl Immature Gran % (Auto) 0.2 (0-0.5) % Neut % (Auto) 59.4 (45.5-73.1) % Lymph % (Auto) 30.5 (18.3-44.2) % [place] % (Auto) 7.6 (2.6-8.5) % Eos % (Auto) 1.7 (0-4.4) % Baso % (Auto) 0.6 (0.2-1.2) % Lymph # (Auto) 2.72 (0.9-3.2) K/mm3 [place] # (Auto) 0.7 H (0.1-0.6) K/mm3 Eos # (Auto) 0.2 (0-0.3) K/mm3 Baso # (Auto) 0.1 (0.0-0.1) K/mm3 Abs Immat Gran (auto) 0.02 (0.00-0.031) K/mm3 Absolute Neuts (auto) 5.3 (1.3-6.7) K/mm3 Absolute Nucleated RBC 0.000 (0.0-0.012) K/mm3 Nucleated RBC % 0.0 (0.0-0.2) % Sodium 139 (137-145) mmol/L Potassium 3.6 (3.4-5.0) mmol/L Chloride 107 (98-107) mmol/L Carbon Dioxide 25 (22-30) mmol/L Anion Gap 7 (4-12) mmol/L BUN 7 L (9-20) mg/dL Creatinine 0.85 (0.7-1.3) mg/dL Estim Creat Clear Calc 98 ml/min Estimated GFR > 60 (59 - ) Glucose 122 H (65-110) mg/dL Calcium 9.1 (8.4-10.2) mg/dL Total Bilirubin 0.2 (0.2-1.3) mg/dL AST 27 (17-59) U/L ALT 23 (6-50) U/L Alkaline Phosphatase 81 (38-126) U/L Troponin I < 0.012 (0.000-0.034) ng/mL Total Protein 7.3 (6.3-8.2) g/dL Albumin 4.1 (3.5-5.1) g/dL Lipase 138 (23-300) U/L Urine Color Yellow (Yellow) Urine Appearance Clear (Clear) Urine pH 5.5 (5.0-9.0) Ur Specific [place] 1.007 (1.001-1.035) Urine Protein Negative (Negative) mg/dL Urine Glucose (UA) Negative (Negative) mg/dL Urine Ketones Negative (Negative) mg/dL Ur Blood (Man) Negative (Negative) Urine Nitrate Negative (Negative) Urine Bilirubin Negative (Negative) Urine Urobilinogen 0.2 (<2.0) mg/dL Leukocyte Esterase Rfl Negative (Negative) DEMIAN/UL <Emilee Andino, FACILITIES MAINTENANCE TECHNICIAN - Last Filed: 11/04/24 18:34> Lab Results 11/04/24 11/04/24 Range/Units 19:24 20:06 WBC 8.9 (4.5-10.0) K/mm3 RBC 4.66 (4.6-6.20) M/mm3 Hgb 13.3 L (14.0-18.0) g/dL Hct 39.5 L (42.0-52.0) % MCV 84.8 (80-100) fl MCH 28.5 (26-34) pg MCHC 33.7 (32-36) g/dl RDW 14.0 (11.5-14.5) % Plt Count 287 (150-375) k/mm3 MPV 9.4 (7.4-10.4) fl Immature Gran % (Auto) 0.2 (0-0.5) % Neut % (Auto) 59.4 (45.5-73.1) % Lymph % (Auto) 30.5 (18.3-44.2) % [place] % (Auto) 7.6 (2.6-8.5) % Eos % (Auto) 1.7 (0-4.4) % Baso % (Auto) 0.6 (0.2-1.2) % Lymph # (Auto) 2.72 (0.9-3.2) K/mm3 [place] # (Auto) 0.7 H (0.1-0.6) K/mm3 Eos # (Auto) 0.2 (0-0.3) K/mm3 Baso # (Auto) 0.1 (0.0-0.1) K/mm3 Abs Immat Gran (auto) 0.02 (0.00-0.031) K/mm3 Absolute Neuts (auto) 5.3 (1.3-6.7) K/mm3 Absolute Nucleated RBC 0.000 (0.0-0.012) K/mm3 Nucleated RBC % 0.0 (0.0-0.2) % Sodium 139 (137-145) mmol/L Potassium 3.6 (3.4-5.0) mmol/L Chloride 107 (98-107) mmol/L Carbon Dioxide 25 (22-30) mmol/L Anion Gap 7 (4-12) mmol/L BUN 7 L (9-20) mg/dL Creatinine 0.85 (0.7-1.3) mg/dL Estim Creat Clear Calc 98 ml/min Estimated GFR > 60 (59 - ) Glucose 122 H (65-110) mg/dL Calcium 9.1 (8.4-10.2) mg/dL Total Bilirubin 0.2 (0.2-1.3) mg/dL AST 27 (17-59) U/L ALT 23 (6-50) U/L Alkaline Phosphatase 81 (38-126) U/L Troponin I < 0.012 (0.000-0.034) ng/mL Total Protein 7.3 (6.3-8.2) g/dL Albumin 4.1 (3.5-5.1) g/dL Lipase 138 (23-300) U/L Urine Color Yellow (Yellow) Urine Appearance Clear (Clear) Urine pH 5.5 (5.0-9.0) Ur Specific [place] 1.007 (1.001-1.035) Urine Protein Negative (Negative) mg/dL Urine Glucose (UA) Negative (Negative) mg/dL Urine Ketones Negative (Negative) mg/dL Ur Blood (Man) Negative (Negative) Urine Nitrate Negative (Negative) Urine Bilirubin Negative (Negative) Urine Urobilinogen 0.2 (<2.0) mg/dL Leukocyte Esterase Rfl Negative (Negative) DEMIAN/UL <Hope Couch MD - Last Filed: 11/06/24 09:23> ECG Data EKG #1: Attestation: I personally reviewed and interpreted this ECG as follows: <Hope Couch MD - Last Filed: 11/06/24 09:23> ECG completion date: 11/04/24 <Hope Couch MD - Last Filed: 11/06/24 09:23> ECG completion time: 19:20 <Hope Couch MD - Last Filed: 11/06/24 09:23> Interpretation: Normal sinus rhythm at a rate of 78 beats per minute. DC interval 201. QRS 125. QT 375/QTC 429. Incomplete RBBB given QRS less flze718fi; RSR' M-shaped pattern in V1-V3; wide, slurred S wave in lateral leads (I, aVL, V5-6) . No T-wave inversions. <Hope Couch MD - Last Filed: 11/06/24 09:23> Discharge Plan Discharge Clinical Impression: Normocytic anemia, Adverse effect of biological substance <Emilee Andino APRN - Last Filed: 11/04/24 18:34> Patient Disposition: Home <Emilee Andino APRN - Last Filed: 11/04/24 18:34> Condition: Stable <Emilee Andino APRN - Last Filed: 11/04/24 18:34> Instructions: Antibiotic Form, Anemia (ED) <Emilee Andino APRN - Last Filed: 11/04/24 18:34> Additional Instructions: As we discussed, the side effects of a lot of the biologic agents are sometimes nonspecific. Recommend keep your upcoming follow-up appointments with your primary care physician, sewing machine mechanic, and quality control scientist that are scheduled. There you will be able to have shared decision making in terms of the risks and benefits. Your workup today was reassuring. Your anemia is otherwise stable. Return to the emergency department with any new or worsening symptoms. <Emilee Andino APRN - Last Filed: 11/04/24 18:34> Patient Language: Swedish <Emilee Andino APRN - Last Filed: 11/04/24 18:34> Prescriptions: No Action Skyrizi 60 mg/mL solution 600 mg IV .COMPLEX Rx Instructions: 600 mg intravenously at week 0, 4, and 8; Skyrizi 180 mg/1.2 mL (150 mg/mL) wearable injector 180 mg subcut .COMPLEX Qty: 1.2 0RF Rx Instructions: 180 mg subcutaneously at week 12 and then every 8 weeks; pantoprazole 40 mg tablet,delayed release (DR/EC) 40 mg PO QAM Qty: 90 1RF escitalopram oxalate [Lexapro] 20 mg tablet 20 mg PO DAILY Qty: 90 1RF <Emilee Andino APRN - Last Filed: 11/04/24 18:34> Follow-up/Referrals: Renny Meyers MD [Physician] - Nu Allen APN-C [Advanced Practice Nurse] - Chuy Lauren MD [Primary Care Provider] - <Emilee Andino APRN - Last Filed: 11/04/24 18:34> Time of Disposition: 23:15 <Emilee Andino APRN - Last Filed: 11/04/24 18:34> 23:15 <Hope Couch MD - Last Filed: 11/06/24 09:23>
[2024-11-04 18:24] VITALS: BP 132/91; PULSE 85; RESP 18; TEMP 36.7; O2SAT 97
[2024-11-04 19:31] LABS: Basophils Absolute Auto 0.1 K/mm3 (0.0-0.1); Basophils Percent Auto 0.6 % (0.2-1.2); Eosinophils Absolute Auto 0.2 K/mm3 (0-0.3); Eosinophils Percent Auto 1.7 % (0-4.4); Hematocrit 39.5 % (42.0-52.0); Hemoglobin 13.3 g/dL (14.0-18.0); Immature Granulocyte Absolute 0.02 K/mm3 (0.00-0.031); Immature Granulocyte Percent A 0.2 % (0-0.5); Lymphocytes Absolute Auto 2.72 K/mm3 (0.9-3.2); Lymphocytes Percent Auto 30.5 % (18.3-44.2); Mean Corpuscular HGB Conc 33.7 g/dl (32-36); Mean Corpuscular Hemoglobin 28.5 pg (26-34); Mean Corpuscular Volume 84.8 fl (80-100); Mean Platelet Volume 9.4 fl (7.4-10.4); Monocytes Absolute Auto 0.7 K/mm3 (0.1-0.6); Monocytes Percent Auto 7.6 % (2.6-8.5); Neutrophils Absolute Auto 5.3 K/mm3 (1.3-6.7); Neutrophils Percent Auto 59.4 % (45.5-73.1); Platelet Count Result 287 k/mm3 (150-375); Red Blood Count 4.66 M/mm3 (4.6-6.20); White Blood Count 8.9 K/mm3 (4.5-10.0)
[2024-11-04 19:40] LABS: Alanine Aminotransferase 23 U/L (6-50); Albumin Level 4.1 g/dL (3.5-5.1); Alkaline Phosphatase 81 U/L (38-126); Anion Gap 7 mmol/L (4-12); Aspartate Amino Transferase 27 U/L (17-59); Bilirubin,Total 0.2 mg/dL (0.2-1.3); Blood Urea Nitrogen 7 mg/dL (9-20); Calcium 9.1 mg/dL (8.4-10.2); Carbon Dioxide 25 mmol/L (22-30); Chloride 107 mmol/L (98-107); Estimated CRCL calculation 98 ml/min; Estimated Glomerular Filt Rate > 60; Glucose 122 mg/dL (65-110); Lipase 138 U/L (23-300); Potassium 3.6 mmol/L (3.4-5.0); Sodium 139 mmol/L (137-145); Total Protein 7.3 g/dL (6.3-8.2)
[2024-11-04 19:52] LABS: Troponin I < 0.012 ng/mL (0.000-0.034)
[2024-11-04 20:12] LABS: Add Urine Microscopic? NO; Appearance Urine Clear (Clear); Bilirubin Urine Negative (Negative); Blood Urine Negative (Negative); Color Urine Yellow (Yellow); Glucose Urine UA Negative (Negative); Ketones Urine Negative (Negative); Leukocyte Esterase Ur Negative LEU/UL (Negative); Nitrate Urine Negative (Negative); Protein Urine Negative (Negative); Specific Grav Ur 1.007 (1.001-1.035); Urobilinogen Urine 0.2 mg/dL (<2.0); pH Urine 5.5 (5.0-9.0)
[2024-11-04 22:09] VITALS: PULSE 60; RESP 14; O2SAT 99
[2024-11-04 22:10] VITALS: BP 122/85; PULSE 61; RESP 13; O2SAT 98
[2024-11-04 22:15] VITALS: PULSE 63; RESP 19; O2SAT 97
[2024-11-04 22:30] VITALS: PULSE 64; RESP 19; O2SAT 98
--- OUTSIDE RECORDS SUMMARY | 2024-11-04 22:44 | XMS_ITS | Clinical Summary ---
Author Organization [facility] [address] Address [address] [place] [address] Care Team Providers Care Patient Access Name Role Phone Chuy Lauren MD Primary Care Provider [phone] Allergies No known active allergies Medications adalimumab [...] Department Care Team Description 11/01/2024 Orders Only [facility] Oncology and Hematology - [place] [address] [place] [address] Renny Meyers MD 10/08/2024 External Device Data STL ABSTRACTION Provider, Abstract 10/08/2024 Refill [facility] Oncology and Hematology - [place] [address] [place] [address] Renny Meyers MD B12 deficiency (Primary Dx) 09/27/2024 Orders Only [facility] Oncology and Hematology - [place] [address] [place] [address] Renny Meyers MD Chronic anemia [...] Description 11/06/2024 11:15 AM CDT Office Visit [facility] Oncology and Hematology - [place] [address] [place] [phone] Renny Meyers MD [address] [place] [address] Health Maintenance Due Date Last [...] Insurance [employer] CHOICE POS II Care Teams Patient Access Relationship Specialty Start Date End Date Chuy Lauren MD [address] [place] [address] PCP - General Family Practice 11/01/23
--- OUTSIDE RECORDS SUMMARY | 2024-11-04 22:44 | XMS_ITS | Encounter Summary ---
Author Organization [facility] Address [address] [place] [address] Care Team Providers Care Quality Nurse Name Role Phone Chuy Lauren MD Primary Care Provider Encounter Details Date Type Department Care Team (Late st Contact Info) Description 12/24/2021 Lab Requisition [facility] DermPath Lab [address] [place] [address] Atul Guerra MD [address] [place] [address] Social History Tobacco Use Types Packs/Day [...] AM CDT) Case Report Dermatopathology Report Case: [id number] Authorizing Provider: Atul Guerra MD Collected: 12/23/2021 12:00 AM Ordering Location: [facility] Derm[facility] Received: 12/24/2021 07:50 AM Pathologist: Holli Davidson MD Specimen: Skin, right neck 2 6:09 PM CDT DERMATOPATHOLOGY LABORATORY Final Diagnosis Specimen A. 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 Path#[id number] 2 6:09 PM CDT DERMATOPATHOLOGY LABORATORY Gross [...] characteristic determined by the Dermatopathology Laboratory at [facility], directed by Dr. Marily Nur. These tests need not be, and therefore are not, approved by the [place] Food and Drug Administration. The tests are used for clinical purposes. Billing Codes Specimen Charges Stain Charges 99974 1 2 6:09 PM CDT DERMATOPATHOLOGY LABORATORY Embedded Images 2 6:09 PM CDT DERMATOPATHOLOGY LABORATORY Pathology/Cytolog y TISSUE SPECIMEN FROM SKIN / Unknown 12/23/2021 12/24/2021 7:50 AM CDT Atul Guerra MD LAB - PATHOLOGY/CYTOLOGY ORDER CAMILO Final Result DERMATOPATHOLOGY LABORATORY [facility] - Department of Dermatology [facility] [address] [place] [address], [address] [place] [address], [facility] [phone] documented in this encounter Visit Diagnoses Not on filedocumented in this encounter Care Teams Quality Nurse Relationship Specialty Start Date End Date Chuy Lauren MD [address] [place] [address] PCP - General 08/29/17 documented as of this encounter
--- OUTSIDE RECORDS SUMMARY | 2024-11-04 22:44 | XMS_ITS | Encounter Summary ---
Author Organization [facility] [employer] [facility] Address [address] [place] [address] Care Team Providers Care Security Strategist Name Role Phone Chuy Lauren MD Primary Care Provider Encounter Details Date Type Department Care Team (Late Contact Info) Description 11/01/2024 Orders Only [facility] Oncology and Hematology - [place] [address] [place] [address] Renny Meyers MD [facility] [address] [place] [phone] Social History Tobacco Use Types Packs/Day [...] Description 11/06/2024 11:15 AM CDT Office Visit [facility] Oncology and Hematology - [address] [place] [address] Renny Meyers MD [address] [place] [phone] documented as of this encounter Procedures [...] on filedocumented in this encounter Care Teams Security Strategist Relationship Specialty Start Date End Date Chuy Lauren MD [address] [place] [phone] PCP - General Family Practice 11/01/23 documented as of this encounter
--- OUTSIDE RECORDS SUMMARY | 2024-11-04 22:44 | XMS_ITS | Clinical Summary ---
Author Organization [facility] Address [address] [place] [address] Care Team Providers Care Customer Energy Specialist Name Role Phone Chuy Lauren MD Primary Care Provider [phone] Source Comments [facility] [employer],non-owned Affiliates and Associated Physician Practices is amultiple site organization consisting of ambulatory clinics and hospital sitesin [place], [place], [place] and [place]. This disclosure is being madepursuant to the Care Everywhere program and may not contain all information available regarding this patient. Last updated 18.[facility] [employer] Social History Tobacco Use Types Packs/Day Years [...] complete this topic Insurance [employer] Care Teams Customer Energy Specialist Relationship Specialty Start Date End Date Chuy Lauren MD [address] [place] [address] PCP - General 08/29/17
== END 2024-11-04 23:33 | disposition home or self-care (01) ==
PROVIDERS: Registered Nurse; Emergency Provider Student in an Organized Health Care Education/Training Program; PCP Family Medicine
DX: D64.9 Anemia, unspecified (principal); T45.1X5A Adverse effect of antineoplastic and immunosuppressive drugs, initial encounter; K50.90 Crohn's disease, unspecified, without complications; K21.9 Gastro-esophageal reflux disease without esophagitis; F41.9 Anxiety disorder, unspecified
CPT/HCPCS: 36415; 80053; 81003; 83690; 84484; 85025; 93005; 99284

== ENCOUNTER 2025-01-03 07:18 | Outpatient (CLI) | payer OTHER, SELFPAY ==
[2025-01-03 09:03] LABS: Cholesterol 167 mg/dL (0-200); HDL Direct 34 mg/dL; Triglycerides 105 mg/dL (<150)
[2025-01-03 09:40] LABS: Prostate Specific Antigen 4.6 ng/mL (< OR = 4.0); Thyroid Stimulating Hormone 1.000 uIU/mL (0.465-4.680)
== END 2025-01-03 07:19 | disposition home or self-care (01) ==
LOC: ANHLAB 07:21
PROVIDERS: PCP Family Medicine; Visit Provider Nurse Practitioner Adult Health
DX: Z12.5 Encounter for screening for malignant neoplasm of prostate (principal); Z80.42 Family history of malignant neoplasm of prostate
CPT/HCPCS: 36415; 80061; 84153; 84443

== ENCOUNTER 2025-01-21 18:40 | Emergency (ER) | payer OTHER, SELFPAY ==
[2025-01-21 18:48] VITALS: BP 134/90; PULSE 73; RESP 16; TEMP 36.2; O2SAT 100
[2025-01-21 19:26] LABS: EDUAAPPEAR Clear; EDUABILI Negative (Negative); EDUABLOOD Negative (Negative); EDUACOLOR1 Yellow; EDUAGLUCOSE Negative (Negative); EDUAKETONE Negative (Negative); EDUALEUKO Negative (Negative); EDUANITRATE Negative (Negative); EDUAPH 6.5; EDUAPROTEIN Negative (Negative); EDUASPGRAVITY 1.010; EDUAUROBILI 0.2
--- NOTE | 2025-01-21 19:35 | ED.MALEGU ---
HPI - Male Genitourinary General Chief complaint: Urogenital-Male Stated complaint: Uti Symptoms Time Seen by Provider: 01/21/25 19:20 Source: patient and RN notes reviewed Mode of arrival: ambulatory Limitations: no limitations History of Present Illness HPI Narrative: 49-year-old male presents Express Care complaining of urinary symptoms for approximately 2-3 days. She reports burning with urination, frequency, hesitancy, lower abdominal pain. Patient denies any nausea, vomiting, diarrhea, back pain, flank pain, fevers, eczema chills, penile discharge, testicular pain, or any other symptoms. Patient denies any concerns for STDs. Patient says he has a history of Crohn's, urinary tract infections, and prostatitis. Related Data Allergies Allergy/AdvReac Type Severity Reaction Status Date / Time No Known Allergies Allergy Verified 01/21/25 19:14 Review of Systems Review of Systems: CONSTITUTIONAL: Denies fever, chills, body aches, or sweats. EYES: Denies visual changes, redness, or discharge. ENT: Denies rhinorrhea, congestion, sore throat, or otalgia. CARDIOVASCULAR: Denies chest pain, palpitations, or edema. RESPIRATORY: Denies cough or dyspnea. GASTROINTESTINAL: Positive for abdominal pain. Negative for nausea, vomiting, or diarrhea. GENITOURINARY: Positive for dysuria, increased frequency, hesitancy. Negative for hematuria, testicular pain, penile discharge, painful erections. SKIN: Denies rash or itching. MUSCULOSKELETAL: Denies back pain, joint pain, or myalgia. NEUROLOGIC: Denies headache, numbness, or weakness. PSYCHIATRIC: Denies anxiety or depression. All other systems reviewed are negative, except as documented in HPI. [facility] Past Medical History Medical History Abdominal bloating Elevated PSA Crohn's disease of small and large intestines Screening for thyroid disorder Elevated fecal calprotectin Iron deficiency anemia Fever Crohn's colitis Terminal ileitis Abscess of male pelvis GERD (gastroesophageal reflux disease) Anxiety Surgical History Surgical History History of colonoscopy August of [address] Burr. Colon biopsies benign. Biopsy of terminal ileum showed nonspecific moderate chronic ileitis. Hx of tonsillectomy Family History Family History Father Malignant neoplasm of prostate Gallbladder disease Prostate carcinoma Mother Overdose of opiate or related narcotic Hypertension Sibling No problems noted. Other Family history of arthritis Social History Social History Social History: His is durable power county 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 Smoking packs per day: 0.5 Smoking cigarettes per day: 10.0 Years smoked: 10 Smoking pack-years: 5.00 Smoking status: Former smoker Tobacco type: cigarettes Second hand tobacco smoke exposure: No Smoking end date: 02/21/17 Additional smoking assessment comments: Quit smoking a few years ago. Smoked about 0.5 PPD for 10 years. Alcohol intake: former Drinks per week: 1 Alcohol use details: Rare. Substance use: never Substance use type: does not use Do You Feel Safe in your Home?: Yes Lack of Transportation: No Lack of Food: Never True Current Housing: I Have Housing Concerned About Future Housing: No Difficulty Paying Gas/Electric Bills: No Difficulty Paying for Meds: No Currently Unemployed: No Education: Bachelor's Degree Difficulty w/ Childcare or Family Care: No Living arrangements: with family Additional living arrangements comments: Lives with his and two children, 15 and 17 years old. 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 Gender identity (if verbalized by the patient): Male Spiritual care concerns: No Agree to blood products: Yes Comments At the time of my signature, I reviewed and agree with the nursing past medical, surgical, social, and family history. There is no relevant family history pertinent to the patient complaint. Exam Narrative: GENERAL: This is a well-nourished, well-developed adult, in no apparent distress. They are non ill-appearing, nontoxic appearing. HEAD: normocephalic, atraumatic. EYES: Sclera clear/white. Vision is grossly intact. Conjunctiva normal bilaterally. Extraocular movements intact. EARS: External ears normal,Hearing grossly intact. NOSE: External nose normal THROAT: Mucous membranes moist NECK: Normal range of motion CARDIOVASCULAR: Regular rate and rhythm. Normal S1-S2. No clicks, gallops, rubs, murmurs. RESPIRATORY: Respiratory rate normal, respiratory effort nonlabored, no respiratory distress. Lung sounds clear to auscultation throughout. Lung sounds equal bilaterally. No adventitious lung sounds. GASTROINTESTINAL: Abdomen soft, flat, suprapubic tenderness to palpation, nondistended. Bowel sounds are active. No hepato-splenomegaly, or palpable masses. No guarding or rigidity. No rebound tenderness. SKIN: warm, Dry, intact with no suspicious lesions or rash, good texture and turgor. NEURO: awake, alert, and oriented to person, place and time. There were no obvious focal neurologic abnormalities. EXTREMITIES: No joint tenderness, effusion, or edema noted. BACK: Nontender without deformity. No CVA tenderness. Course Course Emergency Course: Portions of this record may have been created with voice recognition software Level of Care: Express Care Visit Vital Signs Vital signs: Vital Signs Temperature 97.2 F L 01/21/25 18:48 Pulse Rate 73 01/21/25 18:48 Respiratory Rate 16 01/21/25 18:48 Blood Pressure 134/90 01/21/25 18:48 Pulse Oximetry 100 01/21/25 18:48 Temperature 97.2 F L 01/21/25 18:48 Pulse Rate 73 01/21/25 18:48 Respiratory Rate 16 01/21/25 18:48 Blood Pressure 134/90 01/21/25 18:48 Pulse Oximetry 100 01/21/25 18:48 MDM - Male Genitourinary MDM Narrative Medical decision making narrative: Urine dipstick negative for any evidence of infection. Urine cultures pending. Patient is nontoxic appearing, non ill-appearing, does not appear to be consistent with typical bacterial prostatitis. Patient does have suprapubic tenderness, scared be consistent with a cystitis. Through shared decision making, patient would like to go ahead and start treatment for urinary tract infection while awaiting urine culture results. Patient adamantly denies any concerns for STIs and declined further testing. Go ahead and treat with Bactrim. Discussed physical exam findings. Advised supportive measures and signs/symptoms to go to the ER. Pt is appropriate for outpt treatment and f/u. Differential Diagnosis Differential diagnosis: Likely urinary tract infection, urethritis, prostatitis and other (STD) Lab Data Attestation: I reviewed the patient's lab results. Labs: Lab Results 01/21/25 Range/Units 19:24 POC Urine Color Yellow POC Urine Clarity Clear POC Urine pH 6.5 POC Ur Specif [place] 1.010 POC Urine Protein Negative (Negative) POC Ur Glucose (UA) Negative (Negative) POC Urine Ketones Negative (Negative) POC Urine Blood Negative (Negative) POC Urine Nitrite Negative (Negative) POC Urine Bilirubin Negative (Negative) POC Urine Urobilinogen 0.2 POC U Leukocyte Esteras Negative (Negative) Discharge Plan Discharge Clinical Impression: Urinary tract infection Qualifiers: Urinary tract infection type: site unspecified Hematuria presence: without hematuria Qualified Code(s): N39.0 - Urinary tract infection, site not specified Patient Disposition: Home Condition: Stable Instructions: Antibiotic Form, Urinary Tract Infection in Men (ED) Additional Instructions: Take the antibiotic as prescribed The urine will be sent of for a culture to identify what type of bacteria is causing your infection. If the culture shows that the antibiotic will not get rid of your infection, you will be notified and a new antibiotic will be called in for you. Increase water intake you will need to follow up with your PCP 3-5 days. Go to the ER for any worsening symptoms, abdominal pain, fevers, nausea, vomiting, or any other concerns Patient Language: Setswana Prescriptions: New sulfamethoxazole-trimethoprim [Bactrim DS] 800-160 mg tablet 1 tablet PO Q12H 7 Days Qty: 14 0RF No Action Skyrizi 60 mg/mL solution 600 mg IV .COMPLEX Rx Instructions: 600 mg intravenously at week 0, 4, and 8; hydroxyzine HCl 25 mg tablet 25 mg PO TID PRN (Reason: anxiety) Qty: 30 0RF famotidine 40 mg tablet 40 mg PO QHS Qty: 30 2RF cyclobenzaprine 5 mg tablet 5 mg PO QHS PRN (Reason: muscle spasm) Qty: 20 0RF escitalopram oxalate [Lexapro] 20 mg tablet 20 mg PO DAILY Qty: 90 1RF Skyrizi 180 mg/1.2 mL (150 mg/mL) wearable injector See Rx Instructions .ROUTE .COMPLEX Qty: 1.2 7RF Dose Instruction: INSERT 1 CARTRIDGE INTO ON-BODY INJECTOR AND INJECT 180 MG UNDER THE SKIN AT WEEK 12, THEN EVERY 8 WEEKS THEREAFTER Rx Instructions: INSERT 1 CARTRIDGE INTO ON-BODY INJECTOR AND INJECT 180 MG UNDER THE SKIN AT WEEK 12, THEN EVERY 8 WEEKS THEREAFTER pantoprazole 40 mg tablet,delayed release (DR/EC) 40 mg PO QAM Qty: 90 1RF Follow-up/Referrals: Chuy Lauren MD [Primary Care Provider, [facility]] Time of Disposition: 19:33
== END 2025-01-21 19:36 | disposition home or self-care (01) ==
PROVIDERS: PCP Family Medicine
DX: N39.0 Urinary tract infection, site not specified (principal); Z87.891 Personal history of nicotine dependence; K50.90 Crohn's disease, unspecified, without complications; K21.9 Gastro-esophageal reflux disease without esophagitis; F41.9 Anxiety disorder, unspecified
CPT/HCPCS: 81003; 87086; 99213; G0463

== ENCOUNTER 2025-02-03 07:16 | Outpatient (CLI) | payer OTHER, SELFPAY ==
[2025-02-03 08:44] LABS: Hematocrit 39.9 % (42.0-52.0); Hemoglobin 13.3 g/dL (14.0-18.0); Mean Corpuscular HGB Conc 33.3 g/dl (32-36); Mean Corpuscular Hemoglobin 28.7 pg (26-34); Mean Corpuscular Volume 86.0 fl (80-100); Platelet Count Result 317 k/mm3 (150-375); Red Blood Count 4.64 M/mm3 (4.6-6.20); White Blood Count 6.9 K/mm3 (4.5-10.0)
[2025-02-03 09:12] LABS: Alanine Aminotransferase 25 U/L (6-50); Albumin Level 3.9 g/dL (3.5-5.1); Alkaline Phosphatase 89 U/L (38-126); Anion Gap 4 mmol/L (4-12); Aspartate Amino Transferase 34 U/L (17-59); Bilirubin,Total 0.4 mg/dL (0.2-1.3); Blood Urea Nitrogen 9 mg/dL (9-20); CRP < 0.5 mg/dL (<1.0); Calcium 8.9 mg/dL (8.4-10.2); Carbon Dioxide 28 mmol/L (22-30); Chloride 106 mmol/L (98-107); Estimated Glomerular Filt Rate > 60; Glucose 91 mg/dL (65-110); Potassium 4.0 mmol/L (3.4-5.0); Sodium 138 mmol/L (137-145); Total Protein 7.0 g/dL (6.3-8.2)
[2025-02-03 09:39] LABS: Prostate Specific Antigen 2.8 ng/mL (< OR = 4.0)
== END 2025-02-03 07:17 | disposition home or self-care (01) ==
LOC: ANHLAB 07:17
PROVIDERS: PCP Family Medicine; Referring Provider Nurse Practitioner Adult Health; Visit Provider Nurse Practitioner Family
DX: R97.20 Elevated prostate specific antigen [PSA] (principal); K50.919 Crohn's disease, unspecified, with unspecified complications
CPT/HCPCS: 36415; 80053; 84153; 85027; 85652; 86140

== ENCOUNTER 2025-03-03 07:10 | Outpatient (CLI) | payer OTHER, SELFPAY ==
--- OUTSIDE RECORDS SUMMARY | 2025-03-03 07:13 | XMS_ITS | Clinical Summary ---
Author Organization [facility] Address [address] [place] [address] Care Team Providers Care Numerical Analysis Group Manager Name Role Phone Chuy Lauren MD Primary Care Provider [phone] Source Comments [facility] [employer],non-owned Affiliates and Associated Physician Practices is amultiple site organization consisting of ambulatory clinics and hospital sitesin [place], [place], [place] and [place]. This disclosure is being madepursuant to the Care Everywhere program and may not contain all information available regarding this patient. Last updated 18.[facility] [employer] Social History Tobacco Use Types Packs/Day Years [...] of 3 - 19+ 3-dose series) 02/11/1996 DEPRESSION SCREENING 05/08/2024 COVID-19 VACCINE (1 - 2023-2 5 season) 2025 INFLUENZA VACCINE (#1) 2025 ZOSTER VACCINE (1 of 2) 2027 [...] complete this topic Insurance AETNA Care Teams Numerical Analysis Group Manager Relationship Specialty Start Date End Date Chuy Lauren MD [address] [place] [address] PCP - General 08/29/17
--- OUTSIDE RECORDS SUMMARY | 2025-03-03 07:13 | XMS_ITS | Encounter Summary ---
Author Organization [facility] Address [address] [place] [address] Care Team Providers Care Brazing Machine Operator Name Role Phone Chuy Lauren MD Primary Care Provider [phone] Encounter Details Date Type Department Care Team (Late st Contact Info) Description 12/24/2021 Lab Requisition [facility] [address] [place] [address] Atul Guerra MD [address] [place] [address] Social History Tobacco Use Types Packs/Day [...] AM CDT) Case Report Dermatopathology Report Case: [id number] Authorizing Provider: Atul Guerra MD Collected: 12/23/2021 12:00 AM Ordering Location: [facility] Received: 12/24/2021 07:50 AM Pathologist: Holli Davidson MD Specimen: Skin, right neck 2 6:09 PM CDT DERMATOPATHOLOGY LABORATORY Final Diagnosis Specimen A. 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 Path#[id number] 2 6:09 PM CDT DERMATOPATHOLOGY LABORATORY Gross [...] characteristic determined by the Dermatopathology Laboratory at [facility], directed by Dr. Marily Nur. These tests need not be, and therefore are not, approved by the [place] Food and Drug Administration. The tests are used for clinical purposes. Billing Codes Specimen Charges Stain Charges 76999 1 2 6:09 PM CDT DERMATOPATHOLOGY LABORATORY Embedded Images 2 6:09 PM CDT DERMATOPATHOLOGY LABORATORY Pathology/Cytolog y TISSUE SPECIMEN FROM SKIN / Unknown 12/23/2021 12/24/2021 7:50 AM CDT us Atul Guerra MD LAB - PATHOLOGY/CYTOLOGY ORDER CAMILO Final Result DERMATOPATHOLOGY LABORATORY [facility] - Department of Dermatology [address] [place] [address], [facility] [phone] documented in this encounter Visit Diagnoses Not on filedocumented in this encounter Care Teams Brazing Machine Operator Relationship Specialty Start Date End Date Chuy Lauren MD [address] [place] [address] PCP - General 4/24/18 documented as of this encounter
[2025-03-06 06:07] LABS: Calprotectin, Fecal 237 ug/g (0-120)
== END 2025-03-03 07:11 | disposition home or self-care (01) ==
LOC: ANHLAB 07:11
PROVIDERS: PCP Family Medicine; Visit Provider Nurse Practitioner Family
DX: K50.919 Crohn's disease, unspecified, with unspecified complications (principal)
CPT/HCPCS: 83993

== ENCOUNTER 2025-04-07 08:06 | Day surgery (SDC) | payer OTHER, SELFPAY ==
[2025-01-20 14:35] VITALS: BMI 20.7
[2025-03-26 13:35] VITALS: BMI 20.7
--- OUTSIDE RECORDS SUMMARY | 2025-04-07 08:20 | XMS_ITS | Clinical Summary ---
[facility] Address [address] [place] [address] Care Team Providers Care Mathematical Sciences Professor Name Role Phone Chuy Lauren MD Primary Care Provider [phone] Allergies No known active allergies Medications adalimumab (HUMIRA) 40 mg/0.8 mL Syringe Kit Inject by subcutaneous injection. Active escitalopram oxalate (LEXAPRO) 20 mg tablet Take 20 mg by mouth daily. Active budesonide (ENTOCORT EC) 3 mg Enteric Coated 24 hour capsule Take 3 Capsules by mouth daily. 4 Active cyanocobalamin (VITAMIN B-12) 1,000 mcg/mL Solution Inject 1 mL (1,000 mcg) by intramuscular injection every 14 days. 6 mL 2 4 Active Syringe with Needle, Disp, 1 mL 27 x 1/2 SyringeIndicat ions:B12 deficiency Use with B12 injections. 25 Each 5 Active Active Problems No known active problems Encounters Date Type Department Care Team Description 03/11/[address] [facility] Oncology and Hematology - [place] [address] [place] [address] Renny Meyers MD labs for appt from Last 3 Months Family History Medical [...] Sign Reading Time Taken Comments Blood Pressure 116/76 11/06/2024 10:54 AM CDT Pulse 72 11/06/2024 10:54 AM CDT Temperature 36.5 C (97.7 F) 11/06/2024 10:54 AM CDT Respiratory Rate 16 11/06/2024 10:5 4 AM CDT Oxygen Saturation 97% 11/06/2024 10: 54 AM CDT Inhaled Oxygen Concentration - - Weight 74.8 kg (164 lb 12.8 oz) 025 10:54 AM CDT Height 193 cm (6' 4) 11/15/2023 2:22 PM CDT Body Mass Index 20.06 11/15/2023 2:22 PM CDT Plan of Treatment Upcoming Encounters Date Type Department Care Team (Late st Contact Info) Description 07/16/2025 1:15 PM CDT Office Visit [facility] Oncology and Hematology - [place] [address] [facility] [address] [facility] [address] [place] [address] Renny Meyers MD [address] [place] [address] Health Maintenance Due Date Last Done Comments DTAP/TDAP/TD VACCINES (1 - Tdap) 02/11/1996 HEPATITIS B VACCINES (1 of 3 - 19+ 3-dose series) 10/1995 COLORECTAL SCREENING 2022 Colorectal Cancer Screening 2022 FIT-DNA Q 3 years 2022 FIT/FOBT Q 1 year 2022 Flex Sig/CT Colonography Q 5 years 2022 INFLUENZA VACCINE (#1) 2024 Insurance AETNA CHOICE POS II Care Teams Mathematical Sciences Professor Relationship Specialty Start Date End Date Chuy Lauren MD [address] [place] [address] PCP - General Family Practice 11/01/23
--- OUTSIDE RECORDS SUMMARY | 2025-04-07 08:20 | XMS_ITS | Encounter Summary ---
Author Organization [facility] Address [address] [place] [address] Care Team Providers Care Supply Chain Assistant Name Role Phone Chuy Lauren MD Primary Care Provider [phone] Encounter Details Date Type Department Care Team (Late st Contact Info) Description 12/24/2021 Lab Requisition [facility] [address] [place] [address] Atul Guerra MD [address] [place] [address] Social History Tobacco [...] AM CDT) Case Report Dermatopathology Report Case: [id number] Authorizing Provider: Atul Guerra MD Collected: 12/23/2021 12:00 AM Ordering Location: [facility] Received: 12/24/2021 07:50 AM Pathologist: Holli Davidson MD Specimen: Skin, right neck 2 6:09 PM CDT DERMATOPATHOLOGY LABORATORY Final Diagnosis Specimen A. 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 Path#[id number] 2 6:09 PM CDT DERMATOPATHOLOGY LABORATORY Gross [...] determined by the Dermatopathology Laboratory at [facility], directed by Dr. Marily Nur. These tests need not be, and therefore are not, approved by the [place] Food and Drug Administration. The tests are used for clinical purposes. Billing Codes Specimen Charges Stain Charges 93440 1 2 6:09 PM CDT DERMATOPATHOLOGY LABORATORY Embedded Images 2 6:09 PM CDT DERMATOPATHOLOGY LABORATORY Pathology/Cytolog y TISSUE SPECIMEN FROM SKIN / Unknown 12/23/2021 12/24/2021 7:50 AM CDT us Atul Guerra MD LAB - PATHOLOGY/CYTOLOGY ORDER CAMILO Final Result DERMATOPATHOLOGY LABORATORY [facility] - Department of Dermatology [address] [place] [address], [facility] [phone] documented in this encounter Visit Diagnoses Not on filedocumented in this encounter Care Teams Supply Chain Assistant Relationship Specialty Start Date End Date Chuy Lauren MD [address] [place] [address] PCP - General 4/24/18 documented as of this encounter
--- OUTSIDE RECORDS SUMMARY | 2025-04-07 08:20 | XMS_ITS | Clinical Summary ---
Author Organization [facility] Address [address] [place] [address] Care Team Providers Care Channel Cementer Insole Machine Name Role Phone Chuy Lauren MD Primary Care Provider [phone] Source Comments [facility] [employer],non-owned Affiliates and Associated Physician Practices is amultiple site organization consisting of ambulatory clinics and hospital sitesin [place], [place], [place] and [place]. This disclosure is being madepursuant to the Care Everywhere program and may not contain all information available regarding this patient. Last updated 18.[facility] Social History Tobacco Use Types Packs/Day Years [...] DEPRESSION SCREENING 05/08/2024 COVID-19 VACCINE (1 - 2024-2 6 season) 2025 INFLUENZA VACCINE (#1) 2025 ZOSTER [...] complete this topic Insurance AETNA Care Teams Channel Cementer Insole Machine Relationship Specialty Start Date End Date Chuy Lauren MD [address] [place] [address] PCP - General 08/29/17
[2025-04-07 08:40] VITALS: BP 105/79; PULSE 88; RESP 16; TEMP 37; O2SAT 99
[2025-04-07] MEDS: SIMETHICONE ORAL SUSPENSION 20 MG/0.3 ML 30 ML BOTTLE 1.8 ML PO (08:45)
--- NOTE | 2025-04-07 09:07 | P.PNAN_ITS ---
Anes - Initial Pre Proc Eval Procedure: Operation Date: 04/07/25 09:45 Proposed Procedures p EGD & Diagnostic Colonoscopy - Germán June MD Date/Time: 04/07/25 09:07 Surgeon: Germán June MD Pre Op Diagnosis: Crohn's disease, unspecified, with unspecified com Patient Data Age: 50 Gender: M Height: 1.93 m Weight: 77.3 kg Last Vital Signs Temp 98.6 F 04/07/25 08:40 Pulse 88 04/07/25 08:40 Resp 16 04/07/25 08:40 BP 105/79 04/07/25 08:40 Pulse Ox 99 04/07/25 08:40 O2 Del Method Room Air 04/07/25 08:40 Allergies Allergy/AdvReac Type Severity Reaction Status Date / Time No Known Allergies Allergy Verified 04/07/25 08:40 Home Medications ?Medication ?Instructions ?Recorded ?Confirmed ?Type risankizumab-rzaa 60 mg/mL 600 mg (10 mL) IV .COMPLEX 08/13/24 01/28/25 Rx intravenous solution (Skyrizi) hydroxyzine HCl 25 mg tablet 25 mg PO TID PRN anxiety #30 tabs 11/06/24 04/07/25 Rx cyclobenzaprine 5 mg tablet 5 mg PO QHS PRN muscle spa sm #20 11/26/24 04/07/25 Rx tabs risankizumab-rzaa 180 mg/1.2 mL See Rx Instructions .R oute 01/01/25 03/26/25 Rx (150 mg/mL) subcut wearable .COMPLEX #1.2 mL injector (Skyrizi) pantoprazole 40 mg tablet,delayed 40 mg PO QAM #90 tab s 01/13/25 04/07/25 Rx release famotidine 40 mg tablet See Rx Instructions .Route 0 01/31/25 04/07/25 Rx .COMPLEX #90 tabs escitalopram oxalate 20 mg tablet See Rx Instructions .Route 04/01/25 04/07/25 Rx .COMPLEX #90 tabs Patient hx anesthesia problems: none Family hx anesthesia problems: none Results Review: All pre-operative results and documents have been reviewed as part of the pre- operative evaluation. [facility] Past Medical History Medical History (Updated 01/28/25 @ 16:45 by Shayy Oswald APRN) Prostatitis Abdominal bloating Elevated PSA Crohn's disease of small and large intestines Screening for thyroid disorder Elevated fecal calprotectin Iron deficiency anemia Fever Crohn's colitis Terminal ileitis Abscess of male pelvis GERD (gastroesophageal reflux disease) Anxiety Surgical History Surgical History History of colonoscopy August of [address] Burr. Colon biopsies benign. Biopsy of terminal ileum showed nonspecific moderate chronic ileitis. Hx of tonsillectomy Family History Family History Father Malignant neoplasm of prostate Gallbladder disease Prostate carcinoma Mother Overdose of opiate or related narcotic Hypertension Sibling No problems noted. Other Family history of arthritis Social History Social History Social History: His is durable power real estate associate 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 Smoking packs per day: 0.5 Smoking cigarettes per day: 10.0 Years smoked: 10 Smoking pack-years: 5.00 Smoking status: Former smoker Tobacco type: cigarettes Second hand tobacco smoke exposure: No Smoking end date: 02/21/17 Additional smoking assessment comments: Quit smoking a few years ago. Smoked about 0.5 PPD for 10 years. Alcohol intake: former Drinks per week: 1 Alcohol use details: Rare. Substance use: never Substance use type: does not use Lack of Transportation: No Lack of Food: Never True Current Housing: I Have Housing Concerned About Future Housing: No Difficulty Paying Gas/Electric Bills: No Difficulty Paying for Meds: No Currently Unemployed: No Education: Bachelor's Degree Difficulty w/ Childcare or Family Care: No Living arrangements: with family Additional living arrangements comments: Lives with his and two children, 15 and 17 years old. 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 Gender identity (if verbalized by the patient): Male Spiritual care concerns: No Agree to blood products: Yes Anes - Eval Final PreProcedure Day of Procedure 04/07/25 09:07 Heart: regular rate and rhythm Lungs: clear to auscultation Airway: Mallampati scale class II Neurological: alert and oriented ASA classification: II Anesthetic plan: proceed Anesthesia type and monitoring: general Results Review: All pre-operative results and documents have been reviewed as part of the pre- operative evaluation. Informed Consent: The patient's anesthetic plan and its attendant risks and benefits were discussed with the patient/family/POA. Questions were solicited and answers provided to the satisfaction of the patient/family/POA.
[2025-04-07] MEDS: LACTATED RINGERS 1,000 ML 150 ML IV CONT (09:15)
--- NOTE | 2025-04-07 09:38 | P.HP_ITS ---
H&P: HPI History of Present Illness Date/Time: 04/07/25 09:38 Chief Complaint: Crohn's disease-GERD Narrative: patient w/ 7 year diagnosis of Crohn's disease. He is currently taking Skyrizi , with good clinical response. In addition he suffers from heartburn for several years and is now scheduled for EGD and colonoscopy. Review of Systems Review of Systems: All systems reviewed & are unremarkable except as noted in HPI and below PMFSH Past Medical History Medical History (Updated 01/28/25 @ 16:45 by Shayy Oswald APRN) Prostatitis Abdominal bloating Elevated PSA Crohn's disease of small and large intestines Screening for thyroid disorder Elevated fecal calprotectin Iron deficiency anemia Fever Crohn's colitis Terminal ileitis Abscess of male pelvis GERD (gastroesophageal reflux disease) Anxiety Surgical History Surgical History History of colonoscopy August of [address] Burr. Colon biopsies benign. Biopsy of terminal ileum showed nonspecific moderate chronic ileitis. Hx of tonsillectomy Family History Family History Father Malignant neoplasm of prostate Gallbladder disease Prostate carcinoma Mother Overdose of opiate or related narcotic Hypertension Sibling No problems noted. 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 Smoking packs per day: 0.5 Smoking cigarettes per day: 10.0 Years smoked: 10 Smoking pack-years: 5.00 Smoking status: Former smoker Tobacco type: cigarettes Second hand tobacco smoke exposure: No Smoking end date: 02/21/17 Additional smoking assessment comments: Quit smoking a few years ago. Smoked about 0.5 PPD for 10 years. Alcohol intake: former Drinks per week: 1 Alcohol use details: Rare. Substance use: never Substance use type: does not use Lack of Transportation: No Lack of Food: Never True Current Housing: I Have Housing Concerned About Future Housing: No Difficulty Paying Gas/Electric Bills: No Difficulty Paying for Meds: No Currently Unemployed: No Education: Bachelor's Degree Difficulty w/ Childcare or Family Care: No Living arrangements: with family Additional living arrangements comments: Lives with his and two children, 15 and 17 years old. 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 Gender identity (if verbalized by the patient): Male Spiritual care concerns: No Agree to blood products: Yes Meds Home Medications and Allergies Home Medications ?Medication ?Instructions ?Recorded ?Confirmed ?Type risankizumab-rzaa 60 mg/mL 600 mg (10 mL) IV .COMPLEX 08/13/24 01/28/25 Rx intravenous solution (Skyrizi) hydroxyzine HCl 25 mg tablet 25 mg PO TID PRN anxiety #30 tabs 11/06/24 04/07/25 Rx cyclobenzaprine 5 mg tablet 5 mg PO QHS PRN muscle spa sm #20 11/26/24 04/07/25 Rx tabs risankizumab-rzaa 180 mg/1.2 mL See Rx Instructions .R oute 01/01/25 03/26/25 Rx (150 mg/mL) subcut wearable .COMPLEX #1.2 mL injector (Skyrizi) pantoprazole 40 mg tablet,delayed 40 mg PO QAM #90 tab s 01/13/25 04/07/25 Rx release famotidine 40 mg tablet See Rx Instructions .Route 0 01/31/25 04/07/25 Rx .COMPLEX #90 tabs escitalopram oxalate 20 mg tablet See Rx Instructions .Route 04/01/25 04/07/25 Rx .COMPLEX #90 tabs Allergies Allergy/AdvReac Type Severity Reaction Status Date / Time No Known Allergies Allergy Verified 04/07/25 08:40 Vital Signs Vital Signs - 24 hr 04/07/25 08:40 Temperature 98.6 F Pulse Rate 88 Respiratory Rate 16 Blood Pressure 105/79 Pulse Oximetry 99 Oxygen Delivery Room Air Exam Const: General: cooperative and healthy appearing Resp: Effort & Inspection: normal respiratory effort and able to speak in complete sentences Auscultation: clear to auscultation bilaterally Cardio: Rate: regular rate Rhythm: regular rhythm GI: Inspection: normal to inspection GI Palp: No No hepatosplenomegaly present Auscultation: normal bowel sounds Rectal Exam: deferred Skin: General skin exam: normal color Psych: Appearance: grossly normal Mental Status: mental status grossly normal Assessment and Plan Assessment and plan (1) Crohn's disease: Qualifiers: Gastrointestinal tract location: unspecified location Digestive disease complication type: unspecified complication Qualified Code(s): K50.919 - Crohn's disease, unspecified, with unspecified complications Code(s): K50.90 - Crohn's disease, unspecified, without complications Status: Acute Assessment and Plan: The patient is deemed a good candidate for the procedures. Consent signed. Will proceed. (2) GERD (gastroesophageal reflux disease): Code(s): K21.9 - Gastro-esophageal reflux disease without esophagitis Status: Chronic
--- NOTE | 2025-04-07 10:00 | SUR.OPER ---
EGD ended at 0954, Colon began at 1000.
--- NOTE | 2025-04-07 10:07 | WPDANESPN ---
Anes - Prog Note Post-Op Date/Time: 04/07/25 10:07 Vital Signs: Last Vital Signs Temp 98.6 F 04/07/25 08:40 Pulse 88 04/07/25 08:40 Resp 16 04/07/25 08:40 BP 105/79 04/07/25 08:40 Pulse Ox 99 04/07/25 08:40 O2 Del Method Room Air 04/07/25 08:40 Pain Score (VAS): no Patient Feedback: Patient satisfied with anesthetic care.
[2025-04-07 10:17] VITALS: BP 91/69; PULSE 76; RESP 16; O2SAT 100
[2025-04-07 10:27] VITALS: BP 103/77; PULSE 76; RESP 16; O2SAT 100
[2025-04-07 10:37] VITALS: BP 102/75; PULSE 74; RESP 18; O2SAT 100
== END 2025-04-07 10:46 | disposition home or self-care (01) ==
PROVIDERS: PCP Family Medicine; Referring Provider Nurse Practitioner Family; Visit Provider Internal Medicine Gastroenterology
PROC: 0DJ08ZZ Inspection of Upper Intestinal Tract, Via Natural or Artificial Opening Endoscopic (ICD-10-PCS; CPT 45378; principal; 2025-04-07 09:45)
DX: K50.90 Crohn's disease, unspecified, without complications (principal); K21.9 Gastro-esophageal reflux disease without esophagitis; K29.50 Unspecified chronic gastritis without bleeding
CPT/HCPCS: 43239; 45380

== ENCOUNTER 2025-04-07 08:30 | Outpatient (CLI) | payer OTHER, SELFPAY ==
--- NOTE | 2025-04-07 | S_PTH ---
PATIENT: Aleks Gorman LOC: [facility] U#:[id number] AGE/SX: 50/M ROOM: RE04/07/[address]: Germán June MD : 1975 BED: DIS: 04/07/2025 SPEC #: [id number] RECD: 04/08/25 08:54 STATUS: NELLY REQ #: [id number] LASHA: 04/07/25 00:[address]: Gerámn June DEPT: [facility] Surgical RECD BY: Pablo Alberto ENTERED: 04/08/25 08:59 SP TYPE: Surgical OTHR DR: Chuy Lauren MD Tissues: A - Gastric Biopsy B - Gastric Biopsy C - Colon Biopsy D - Colon Biopsy E - Colon Biopsy F - Colon Biopsy Procedures: Hematoxylin and Eosin Stain Gross and Microscopic Level 4 H.Pylori
--- OUTSIDE RECORDS SUMMARY | 2025-04-08 08:39 | XMS_ITS | Encounter Summary ---
Author Organization [facility] Address [address] [place] [address] Care Team Providers Care Tube Wrapper Name Role Phone Chuy Lauren MD Primary Care Provider [phone] Encounter Details Date Type Department Care Team (Late st Contact Info) Description 12/24/2021 Lab Requisition [facility] DermPath Lab [address] [place] [address] Atul Guerra MD [address] [address] Social History Tobacco Use Types Packs/Day [...] AM CDT) Case Report Dermatopathology Report Case: [id number] Authorizing Provider: Atul Guerra MD Collected: 12/23/2021 12:00 AM Ordering Location: [facility] Derm[facility] Lab Received: 12/24/2021 07:50 AM Pathologist: Holli Davidson MD Specimen: Skin, right neck 2 6:09 PM CDT DERMATOPATHOLOGY LABORATORY Final Diagnosis Specimen A. 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 Path#[id number] 2 6:09 PM CDT DERMATOPATHOLOGY LABORATORY Gross [...] by the Dermatopathology Laboratory at [facility], directed by Dr. Marily Nur. These tests need not be, and therefore are not, approved by the [place] Food and Drug Administration. The tests are used for clinical purposes. Billing Codes Specimen Charges Stain Charges 62798 1 2 6:09 PM CDT DERMATOPATHOLOGY LABORATORY Embedded Images 2 6:09 PM CDT DERMATOPATHOLOGY LABORATORY Pathology/Cytolog y TISSUE SPECIMEN FROM SKIN / Unknown 12/23/2021 12/24/2021 7:50 AM CDT us Atul Guerra MD LAB - PATHOLOGY/CYTOLOGY ORDER CAMILO Final Result DERMATOPATHOLOGY LABORATORY [facility] - Department of Dermatology [address] [place] [address], [facility] [phone] documented in this encounter Visit Diagnoses Not on filedocumented in this encounter Care Teams Tube Wrapper Relationship Specialty Start Date End Date Chuy Lauren MD [address] [place] [address] PCP - General 4/24/18 documented as of this encounter
--- OUTSIDE RECORDS SUMMARY | 2025-04-08 08:39 | XMS_ITS | Clinical Summary ---
Author Organization [facility] Address [address] [place] [address] Care Team Providers Care Senior Treasury Consultant Name Role Phone Chuy Lauren MD Primary Care Provider [phone] Source Comments [email or web address],non-owned Affiliates and Associated Physician Practices is amultiple site organization consisting of ambulatory clinics and hospital sitesin [place], [place], [place] and [place]. This disclosure is being madepursuant to the Care Everywhere program and may not contain all information available regarding this patient. Last updated 18.[email or web address] Social History Tobacco Use Types Packs/Day Years [...] complete this topic Insurance [employer] Care Teams Senior Treasury Consultant Relationship Specialty Start Date End Date Chuy Lauren MD [address] [place] [address] PCP - General 08/29/17
--- OUTSIDE RECORDS SUMMARY | 2025-04-08 08:39 | XMS_ITS | Clinical Summary ---
Author Organization [facility] Address [address] [address] Care Team Providers Care Rn Residential Name Role Phone Chuy Lauren MD Primary Care Provider [phone] Allergies No known active allergies Medications adalimumab [...] Type Department Care Team Description 03/11/2025 Telephone [facility] Oncology and Hematology - [place] [address] [place] [address] Renny Meyers MD labs for [...] Description 07/16/2025 1:15 PM CDT Office Visit [facility] Oncology and Hematology - [place] [address] [facility] [address] [place] [address] Renny Meyers MD [address] [place] [address] Health Maintenance Due Date Last Done Comments DTAP/TDAP/TD VACCINES (1 - Tdap) 02/11/1996 HEPATITIS B VACCINES (1 of 3 - 19+ 3-dose series) 10/1995 COLORECTAL SCREENING 2022 Colorectal Cancer Screening 2022 FIT-DNA Q 3 years 2022 FIT/FOBT Q 1 year 2022 Flex Sig/CT Colonography Q 5 years 2022 INFLUENZA VACCINE (#1) 2024 Insurance [employer] CHOICE POS II Care Teams Rn Residential Relationship Specialty Start Date End Date Chuy Lauren MD [address] [place] [address] PCP - General Family Practice 11/01/23
== END 2025-04-07 08:31 | disposition home or self-care (01) ==
LOC: ANHLAB 04-08 08:31
PROVIDERS: PCP Family Medicine; Visit Provider Internal Medicine Gastroenterology
DX: K50.90 Crohn's disease, unspecified, without complications (principal)
CPT/HCPCS: 88305; 88342